=== PATIENT | female | born 1955 | race Caucasian/White ===

== ENCOUNTER 2019-01-05 19:05 | Inpatient (IN) | payer MEDICARE, OTHER ==
[~2019-01-05] VITALS: Ht 157.5 cm; Wt 61.2 kg
[2019-01-05] MEDS ORDERED: ONDANSETRON 4 MG INJ IV STA (22:05)
[2019-01-05] MEDS ORDERED: morphine 2 MG INJ IV STA (22:05)
[2019-01-05] MEDS ORDERED: SOD CHLORIDE 0.9% 1,000 ML IV STA (22:05)
--- NOTE | 2019-01-05 22:11 | ERD ---
ER Documentation Chief Complaint Chief Complaint SOB X'S 1 MONTH HPI 63-year-old female, with history of thyroid disease, presents to the emergency department, complaining of worsening of symptoms for 4 weeks, currently, the patient reports history of shortness of breath, progressive painful enlargement of the goiter, predominantly on the left side, anxiety, loose stools, subjective fever and general malaise. The patient brought labs from 12/26/18 that reports TSH 0.08 and CRP of 82.1. Currently she is taking methimazole and metoprolol without improvement of the symptoms. ROS All systems reviewed and are negative except as per history of present illness. Allergies Allergies: Coded Allergies: sulfamethoxazole (Verified Allergy, Mild, RASH, 01/05/19) trimethoprim (Verified Allergy, Mild, RASH, 01/05/19) PMhx/Soc Medical and Surgical Hx: pt denies Medical Hx, pt denies Surgical Hx History of Surgery: Yes (CHOLECYSTECTOMY) Hx Respiratory Disorders: Yes Hx Miscellaneous Medical Probl: Yes (HYPOTHYROID) Hx Alcohol Use: Yes (socially) Hx Substance Use: No Hx Tobacco Use: No Smoking Status: Never smoker Physical Exam Vitals Vital Signs Date Temp Pulse Resp B/P (MAP) Pulse Ox O2 O2 Flow FiO2 Time Delivery Rate 01/05/19 125 22 134/69 97 Room Air 22:26 (90) 01/05/19 100.4 120 24 130/60 98 19:46 (83) Physical Exam Patient alert, oriented, in distress due to pain erythematous HEENT: Normocephalic, atraumatic. EYES: PERRLA, EOMI, Sclera and conjunctiva appear normal. EARS: Canals clear, tympanic membranes WNL. THROAT: Erythematous oropharynx. NECK: Painful enlargement of the left thyroid lobe. HEART: Tachycardia, no rubs, murmurs, clicks or gallops. LUNGS: Clear to auscultation. ABDOMEN: Soft, non-tender without masses or hepatosplenomegaly. EXTREMITIES: No edema bilaterally. BACK: Full ROM, no deformity, normal back exam NEURO: Cranial nerves grossly intact, mild hyperreflexia. SKIN: No rashes, no petechia. Result Diagram: 01/05/19221401/05/19 221 Results 24 hrs Laboratory Tests Test 01/05/19 22:15 White Blood Count 8.8 10^3/ul Red Blood Count 4.07 10^6/ul Hemoglobin 11.0 g/dl Hematocrit 34.5 % Mean Corpuscular Volume 84.8 fl Mean Corpuscular Hemoglobin 27.0 pg Mean Corpuscular Hemoglobin Concent 31.9 g/dl Red Cell Distribution Width 13.8 % Platelet Count 333 10^3/UL Mean Platelet Volume 10.0 fl Immature Granulocytes % 0.600 % Neutrophils % 81.1 % Lymphocytes % 8.7 % Monocytes % 9.3 % Eosinophils % 0.1 % Basophils % 0.2 % Nucleated Red Blood Cells % 0.0 /100WBC Immature Granulocytes # 0.050 10^3/ul Neutrophils # 7.2 10^3/ul Lymphocytes # 0.8 10^3/ul Monocytes # 0.8 10^3/ul Eosinophils # 0.0 10^3/ul Basophils # 0.0 10^3/ul Nucleated Red Blood Cells # 0.0 10^3/ul Urine Color YELLOW Urine Clarity CLEAR Urine pH 5.0 Urine Specific [place] 1.016 Urine Ketones TRACE mg/dL Urine Nitrite NEGATIVE mg/dL Urine Bilirubin NEGATIVE mg/dL Urine Urobilinogen NEGATIVE mg/dL Urine Leukocyte Esterase TRACE Ngoc/ul Urine Microscopic RBC 0 /HPF Urine Microscopic WBC 2 /HPF Urine Mucus FEW /HPF Urine Hemoglobin NEGATIVE mg/dL Urine Glucose NEGATIVE mg/dL Urine Total Protein NEGATIVE mg/dl Sodium Level 139 mmol/L Potassium Level 4.4 mmol/L Chloride Level 102 mmol/L Carbon Dioxide Level 27 mmol/L Anion Gap 10 Blood Urea Nitrogen 15 mg/dl Creatinine 0.39 mg/dl Est Glomerular Filtrat Rate mL/min > 60 mL/min Glucose Level 135 mg/dl Calcium Level 9.7 mg/dl Total Bilirubin 0.2 mg/dl Direct Bilirubin 0.00 mg/dl Indirect Bilirubin 0.2 mg/dl Aspartate Amino Transf (AST/SGOT) 33 IU/L Alanine Aminotransferase (ALT/SGPT) 19 IU/L Alkaline Phosphatase 99 IU/L Troponin I < 0.012 ng/ml Total Protein 7.6 g/dl Albumin 4.0 g/dl Globulin 3.60 g/dl Albumin/Globulin Ratio 1.11 Thyroid Stimulating Hormone (TSH) < 0.015 MIU/L Free Thyroxine > 6.99 ng/dl Free Triiodothyronine (T3) pg/mL > 22.80 pg/ml Current Medications Medications Dose Sig/Elmer Start Time Status Last (Trade) Ordered Route PRN Stop Time Admin Dose Reason Admin Sodium 1,000 ml @ Q1H STAT 01/05/19 DC 01/05/19 Chloride 1,000 mls/hr IV 22:05 01/05/19 22:24 23:04 Morphine 2 mg ONCE STAT 01/05/19 DC 01/05/19 Sulfate IV 22:05 01/05/19 22:22 (morphine) 22:10 Ondansetron 4 mg ONCE STAT 01/05/19 DC 01/05/19 HCl (Zofran IV 22:05 01/05/19 22:22 Inj) 22:10 Propranolol 60 mg ONCE ONCE 01/05/19 DC 01/05/19 HCl PO 23:00 01/05/19 23:12 (Inderal) 23:01 Methimazole 20 mg ONCE ONCE 01/05/19 DC 01/05/19 (Tapazole) PO 23:00 01/05/19 23:12 23:01 100 mg ONCE ONCE 01/05/19 DC 01/05/19 Hydrocortison IV 23:00 01/05/19 23:12 e 23:01 (Solu-Cortef) Sodium 1,000 ml @ [id number] IV 01/05/19 Chloride 80 mls/hr 23:25 01/06/19 11:54 Patient: MARIE CLARK : 1955 Age: 63 Sex: F MR #: [id number] DOS: 01/05/192204 Ordering MD: LESLIE HERNANDEZ MD Location: [facility] Room/Bed: PROCEDURE: XR Chest. CLINICAL INDICATION: Chest pain TECHNIQUE: Single frontal view of the chest was obtained COMPARISON: CR PORT CHEST 07/25/2009; CR PORT CHEST 07/24/2009; CR PORTABLE CHEST 06/20/2008 FINDINGS: The patient is rotated slightly limiting evaluation. Atherosclerotic calcification of the aorta. Cardiomediastinal silhouette is minimally prominent. No focal opacity within the visualized lungs. No pleural effusion or pneumothorax. Left convex curvature of the thoracic spine. IMPRESSION: 1. Atherosclerotic calcification of the aorta. Minimal prominence of the cardiac silhouette may be exaggerated by technique. 2. No focal infiltrate, pleural effusion or pneumothorax. RPTAT: HVG Procedures/MDM Differential diagnosis include but not limited to: thyroid disease, electrolyte imbalance, anxiety, migraine. Low suspicion for acute coronary event, aortic dissection, CVA. Pertinent Data: 12 Lead ECG: Sinus tachy rhythm, no ST changes. Physical examination and clinical presentation consistent most likely with Goiter with hyperthyroidism/mild thyrotoxicosis, therefore, at this time, I considered that the patient will benefit from inpatient management and evaluation. Dr. Chamorro kindly accepted the admission, Dr. Santos will be consulted. During the ED course the patient remained stable, no new complaints. Results and clinical impression discussed with patient And her daughter who agreed with management. The patient is stable to be admitted to [facility]. Admission: Diagnosis: goiter with hyperthyroidism Accepting physician: Dr. Chamorro Time: 23:00h Android Ui Developer: Educational Program Assistant Dr. Santos Level of care: [facility] Ins: Medi-medi Instructions explained and given directly by me to the patient with acknowledgment and demonstrated understanding. Disclaimer: Inadvertent spelling and grammatical errors are likely due to EHR/dictation software use and do not reflect on the overall quality of patient care. Also, please note that the electronic time recorded on this note does not necessarily reflect the actual time of the patient encounter. Departure Diagnosis: Primary Impression: Goiter with hyperthyroidism Additional Impression: Tachycardia Condition: Stable LESLIE HERNANDEZ MD Jan 05, 2019 22:11
[2019-01-05] MEDS ORDERED: METHIMAZOLE 5 MG TAB PO ONE (23:00)
[2019-01-05] MEDS ORDERED: PROPRANOLOL 20 MG TAB PO ONE (23:00)
[2019-01-05] MEDS ORDERED: HYDROCORTISONE 100 MG INJ IV ONE (23:00)
[2019-01-05] MEDS ORDERED: SOD CHLORIDE 0.9% 1,000 ML IV SCH (23:25)
[2019-01-05] MEDS ORDERED: KETOROLAC 30 MG INJ IV PRN (23:30)
[2019-01-05] MEDS ORDERED: ONDANSETRON 4 MG INJ IV PRN (23:30)
[2019-01-05] MEDS ORDERED: ACETAMINOPHEN 325 MG TAB PO PRN (23:30)
[2019-01-06] VITALS (7 sets, daily range): BP systolic 103–140; BP diastolic 55–72; PULSE 64–105; RESP 16–20; Ht 157.5 cm; Wt 61.2 kg
[2019-01-06] MEDS ORDERED: ACETAMINOPHEN 500 MG TAB PO PRN (01:30)
[2019-01-06] MEDS: DEXTROSE 5%-0.9% NACL 1,000 ML IV SCH (01:34)
[2019-01-06] MEDS: PROPRANOLOL 40 MG TAB PO SCH ×3 (05:54→21:08)
[2019-01-06] MEDS: METHIMAZOLE 5 MG TAB PO SCH ×2 (09:00→20:56)
[2019-01-06] MEDS ORDERED: predniSONE 20 MG TAB PO SCH (09:00)
--- NOTE | 2019-01-06 09:32 | HP ---
Date/Time of Note Date/Time of Note DATE: 01/06/19 TIME: 09:27 Assessment/Plan VTE Prophylaxis SCD applied (from Nsg): Yes SCD contraindicated: low risk/ambulating Pharmacological prophylaxis: LMWH Pharm contraindication: low risk/ambulating Lines/Catheters IV Catheter Type (from Nrsg): Peripheral IV Central line still needed: No Urinary Cath still in place: No Reason Cath still needed: urinary retention Assessment/Plan Assessment/Plan 1. Thyrotoxicosis 2. Tachycardia 3. Neck pain 4. Dehydration 5. Weight loss 6. Osteoporosis 7. History of cholecystectomy 8. History of appendectomy 9. History of tonsillectomy 10. Anemia 11. Constipation, no GI workup was done. 12. Anxiety 13. Chest pain 14. Respiratory distress. 15. Incomplete data. Result Diagram: 01/05/19 2215 01/05/19 2215 Results 24hrs Laboratory Tests Test 01/05/19 22:15 01/06/19 05:59 White Blood Count 8.8 Red Blood Count 4.07 L Hemoglobin 11.0 L Hematocrit 34.5 L Mean Corpuscular Volume 84.8 Mean Corpuscular Hemoglobin 27.0 L Mean Corpuscular Hemoglobin Concent 31.9 L Red Cell Distribution Width 13.8 Platelet Count 333 Mean Platelet Volume 10.0 Immature Granulocytes % 0.600 H Neutrophils % 81.1 H Lymphocytes % 8.7 L Monocytes % 9.3 Eosinophils % 0.1 Basophils % 0.2 Nucleated Red Blood Cells % 0.0 Immature Granulocytes # 0.050 H Neutrophils # 7.2 Lymphocytes # 0.8 Monocytes # 0.8 Eosinophils # 0.0 Basophils # 0.0 Nucleated Red Blood Cells # 0.0 Urine Color YELLOW Urine Clarity CLEAR Urine pH 5.0 Urine Specific [place] 1.016 Urine Ketones TRACE A Urine Nitrite NEGATIVE Urine Bilirubin NEGATIVE Urine Urobilinogen NEGATIVE Urine Leukocyte Esterase TRACE A Urine Microscopic RBC 0 Urine Microscopic WBC 2 Urine Mucus FEW A Urine Hemoglobin NEGATIVE Urine Glucose NEGATIVE Urine Total Protein NEGATIVE Sodium Level 139 Potassium Level 4.4 Chloride Level 102 Carbon Dioxide Level 27 Anion Gap 10 Blood Urea Nitrogen 15 Creatinine 0.39 L Est Glomerular Filtrat Rate mL/min > 60 Glucose Level 135 Calcium Level 9.7 Total Bilirubin 0.2 Direct Bilirubin 0.00 Indirect Bilirubin 0.2 Aspartate Amino Transf (AST/SGOT) 33 Alanine Aminotransferase (ALT/SGPT) 19 Alkaline Phosphatase 99 Troponin I < 0.012 Total Protein 7.6 Albumin 4.0 Globulin 3.60 H Albumin/Globulin Ratio 1.11 Thyroid Stimulating Hormone (TSH) < 0.015 L Free Thyroxine > 6.99 H Free Triiodothyronine (T3) pg/mL > 22.80 H Magnesium Level 2.2 Iron Level 12 L Total Iron Binding Capacity 274 Percent Iron Saturation 4 L HPI/ROS Admit Date/Time Admit Date/Time Jan 05, 2019 at 23:27 Hx of Present Illness Neck pain with swelling worse last 5-7 days. Came to the office about 10 days ago complaining of weight loss and palpitations patient was found to have a. Hyperthyroid condition with the TSH being 0.01 that was also started. 10 mg twice daily along with the Inderal 40 3 times daily. Patient condition mildly improved she came to the office 4 days ago complaining of painful and swollen neck which was thyroiditis consistent with thyroiditis. Motrin was given 600 3 times daily yesterday received a call from a that. Her tachycardia continues she does not feel good she is having swallowing problems and recomm ended to come to the hospital and subsequently was admitted. In the emergency room prednisone was started heart rate now is better controlled. She continues to have a pain in the neck area. ROS Constitutional: diaphoresis, fatigue, nausea, poor po Eyes: redness, visual change; No no complaints, No pain, No discharge, No other ENT: pain, congestion, discharge, sore throat; No no complaints, No bleeding, No dysphagia, No other Respiratory: cough, shortness of breath; No no complaints, No pain, No pleuritic pain, No sputum, No wheezing, No other Cardiovascular: chest pain, lightheadedness, orthopenea, palpitations, paroxysmal nocturnal dyspnea; No no complaints, No edema, No other Gastrointestinal: constipation, decreased appetite, flatus, nausea, passing stool; No no complaints, No pain, No blood, No diarrhea, No vomiting, No other Genitourinary: dysuria, flank pain Musculoskeletal: back pain, bone/joint pain, neck pain; No no complaints, No restricted range of motion, No swelling, No other Skin: pruritis, rash; No no complaints, No bruising, No erythema, No laceration, No skin lesions, No other Neurologic: confusion, dizziness, headache, syncope; No no complaints, No focal-weakness, No seizure, No other Endocrine: polydypsia, dry skin, weight change; No no complaints, No polyuria, No temp intolerance, No other Lymphatic: No no complaints, No adenopathy, No tender nodes, No lymphadema, No other Psychological: anxiety, confusion; No no complaints, No nl mood/affect, No depression, No suicidal, No other Immunologic: No no complaints, No immunodeficiency, No pruritis, No rhinitis, No urticaria, No other PMH/Family/Social Past Medical History Medical History: angina, congestive heart failure, coronary artery disease, gallstones, GERD, high cholesterol, hypertension, urinary tract infection Medications Current Medications Ketorolac Tromethamine (Toradol) 30 mg ER BRIDGE PRN IV .PAIN; Start 01/05/19 at 23:30; Stop 01/06/19 at 23:29 Ondansetron HCl (Zofran Inj) 4 mg BRIDGE ORDER PRN IV NAUSEA/VOMITING; Start 01/05/19 at 23:30; Stop 01/06/19 at 23:29 Acetaminophen (Tylenol Tab) 650 mg ER BRIDGE PRN PO .MILD PAIN 1-3 OR TEMP; Start 01/05/19 at 23:30; Stop 01/06/19 at 23:29 Dextrose/Sodium Chloride 1,000 ml @ 40 mls/hr Q24H IV Last administered on 01/06/19at 01:34; Admin Dose 40 MLS/HR; Start 01/06/19 at 01:30 Acetaminophen (Tylenol Tab) 500 mg Q8 PRN PO MILD PAIN(1-3)OR ELEVATED TEMP; Start 01/06/19 at 01:30 Propranolol HCl (Inderal) 40 mg Q8 PO Last administered on 01/06/19at 05:54; Admin Dose 40 MG; Start 01/06/19 at 06:00 Methimazole (Tapazole) 20 mg BID PO Last administered on 01/06/19at 09:00; Admin Dose 20 MG; Start 01/06/19 at 09:00 Prednisone (Prednisone) 80 mg DAILY PO Last administered on 01/06/19at 09:00; Admin Dose 80 MG; Start 01/06/19 at 09:00; Stop 01/07/19 at 07:00 Prednisone (Prednisone) 60 mg DAILY PO ; Start 01/07/19 at 09:00 Coded Allergies: sulfamethoxazole (Verified Allergy, Mild, RASH, 01/05/19) trimethoprim (Verified Allergy, Mild, RASH, 01/05/19) Past Surgical History Past Surgical Hx: appendectomy, cholecystectomy, other (Tonsillectomy.) Family History Significant Family History: heart disease, COPD, diabetes Social History Alcohol Use: none Smoking Status: Never smoker Drug Use: none Exam/Review of Systems Vital Signs Vitals Vital Signs Date Temp Pulse Resp B/P (MAP) Pulse Ox O2 O2 Flow FiO2 Time Delivery Rate 01/06/19 98.8 64 20 103/72 98 08:00 (82) 01/05/19 Room Air 23:57 Intake and Output 01/05/19 01/05/19 01/06/19 1414:59 22:59 06:59 IntakeIntake Total 140 ml BalanceBalance 140 ml Exam Constitutional: alert, oriented, well developed, distress, frail Psych: anxiety, depression; No no complaints, No nl mood/affect, No confusion, No suicidal, No other Head: normocephalic, atraumatic, lacerations; No hematomas, No other Eyes: EOMI, nl lids, PERRL; No nl conjunctiva, No nl sclera, No icteric, No fundi, disc, No other ENMT: other (Status post tonsillectomy status.); No nl external ears & nose, No nl lips & teeth, No nl nasal mucosa & septum, No mucosa pink and moist, No intubated, No tympanic membranes Neck: non-tender, jvd, bruits, thyromegaly, nuchal rigidity, other (Warm swollen painful thyroid.) Respiratory: normal air movement, congested cough, diminished breath sounds, labored breathing, tactile fremitus; No clear to auscultation, No crackles/rales, No intercostal retraction, No respirations, No wheezing, No other Cardiovascular: nl pulses, bruits, edema (Periorbital area more prominent.), irregular rhythm, jugular venous distention (JVD), systolic murmur; No regular rate and rhythm, No diastolic murmur, No gallop, No murmurs/extra sounds, No rub, No S3, No S4, No other Gastrointestinal: bowel sounds, distended, rebound or guarding, surgical scars, other (Status post cholecystectomy scars.); No soft, No nl liver, spleen, No non-tender, No ascites, No firm, No h epatomegaly, No mass, No splenomegaly, No tender Genitourinary - Female: nl adnexae, nl external genitalia; No CMT, No CVA tenderness, No uterus, No other Musculoskeletal: joint tenderness, muscle tone, muscle weakness; No nl extremities to inspection, No nl gait and stance, No range of motion, No spine non-tender, No swelling, No other Extremities: normal pulses; No calf tenderness, No cyanosis, No clubbing, No edema, No pitting pedal edema, No palpable cord, No tenderness, No other Neurological: [employer] II-XII intact, numbness; No nl mental status, No nl speech, No nl strength, No confused, No DTR's symmetric, No focal weakness, No lethargic, No reflexes, No unresponsive, No other Skin: nl turgor; No rash or lesions, No diaphoresis, No ecchymosis, No laceration, No punctu re, No other Lymph: No nl lymph nodes, No enlarged, No nontender, No other GALLO HUMMEL MD Jan 06, 2019 09:32
--- NOTE | 2019-01-06 13:31 | CONS ---
Assessment/Plan Assessment/Plan Problems: (1) Goiter with hyperthyroidism Status: Acute Comment: He has not 100% clear whether this is a hyperthyroid multinodular goiter and she has another ENT issue going on for an acute thyroiditis with thyrotoxicosis. She is improving and so I am going to do her thyroid ultrasound tomorrow so she will be more comfortable. Please note if we did not stipulate acute thyroiditis (a sedimentation rate would help to differentiate this) and she actually presented with multiple signs and symptoms consistent with thyroid storm. She is already improving and has actually received the appropriate treatment. (2) Iron deficiency anemia Status: Chronic Comment: Try to replace this but I am also going to do oral iron which will help to remove excess thyroid hormone from the bloodstream Qualifiers: Qualified Codes: D50.9 - Iron deficiency anemia, unspecified (3) Dyslipidemia Status: Chronic Comment: As per primary care physician Consultation Date/Type/Reason Admit Date/Time Jan 05, 2019 at 23:27 Date of Consultation: Jan 06, 2019 Type of Consult Endocrinology Reason for Consultation Thyrotoxicosis with neck tenderness, possible acute thyroiditis Requesting Provider: GALLO HUMMEL MD Date/Time of Note DATE: 01/06/19 TIME: 13:26 Hx of Present Illness Pleasant 63-year-old woman with no prior history of thyroid disease to the best of her knowledge. Roughly a week ago she presented with marked palpitations weight loss and tremor. At that time she was found to be hyperthyroid and was placed on Inderal and propanolol. She subsequently has developed pain and tenderness in the area of the neck and also up into the left hand submandibular area and left ear area. She was unaware of any specific fevers denied any shaking chills or drenching sweats. She has otherwise a negative endocrine review of systems outside of thyrotoxic symptoms. Constitutional: febrile Eyes: no complaints ENT: sore throat, other (Tenderness especially left-sided) Respiratory: no complaints Cardiovascular: palpitations Gastrointestinal: no complaints (Eyes any diarrhea or excess bowel movements) Genitourinary: no complaints Musculoskeletal: no complaints Skin: no complaints Endocrine: temp intolerance, other (Full symptoms consistent with thyrotoxicosis acutely) Lymphatic: no complaints Past Medical History Medical History: high cholesterol, other (Acute thyrotoxicosis) Medications Current Medications Ketorolac Tromethamine (Toradol) 30 mg ER BRIDGE PRN IV .PAIN; Start 01/05/19 at 23:30; Stop 01/06/19 at 23:29 Ondansetron HCl (Zofran Inj) 4 mg BRIDGE ORDER PRN IV NAUSEA/VOMITING; Start 01/05/19 at 23:30; Stop 01/06/19 at 23:29 Acetaminophen (Tylenol Tab) 650 mg ER BRIDGE PRN PO .MILD PAIN 1-3 OR TEMP; Start 01/05/19 at 23:30; Stop 01/06/19 at 23:29 Dextrose/Sodium Chloride 1,000 ml @ 40 mls/hr Q24H IV Last administered on 01/06/19at 01:34; Admin Dose 40 MLS/HR; Start 01/06/19 at 01:30 Acetaminophen (Tylenol Tab) 500 mg Q8 PRN PO MILD PAIN(1-3)OR ELEVATED TEMP; Start 01/06/19 at 01:30 Propranolol HCl (Inderal) 40 mg Q8 PO Last administered on 01/06/19at 13:14; Admin Dose 40 MG; Start 01/06/19 at 06:00 Methimazole (Tapazole) 20 mg BID PO Last administered on 01/06/19at 09:00; Admin Dose 20 MG; Start 01/06/19 at 09:00 Prednisone (Prednisone) 80 mg DAILY PO Last administered on 01/06/19at 09:00; Admin Dose 80 MG; Start 01/06/19 at 09:00; Stop 01/07/19 at 07:00 Prednisone (Prednisone) 60 mg DAILY PO ; Start 01/07/19 at 09:00 Ferric Sodium Gluconate Complex 125 mg/Sodium Chloride 100 ml @ 100 mls/hr DAILY@1300 IVPB ; Start 01/07/19 at 13:00; Stop 01/09/19 at 13:59; Status UNV Ferric Sodium Gluconate Complex 125 mg/Sodium Chloride 100 ml @ 100 mls/hr ONCE ONCE IVPB ; Start 01/06/19 at 13:30; Stop 01/06/19 at 14:29; Status UNV Docusate Sodium/ Ferrous Fumarate (Darlene-Sequels) 1 tab BID PO ; Start 01/06/19 at 13:30; Status UNV Allergies: Coded Allergies: sulfamethoxazole (Verified Allergy, Mild, RASH, 01/05/19) trimethoprim (Verified Allergy, Mild, RASH, 01/05/19) Past Surgical History Past Surgical Hx: appendectomy, cholecystectomy, other (Has post tonsillectomy) Family History Significant Family History: no pertinent family hx Social History Alcohol Use: none Smoking Status: Never smoker Drug Use: none Exam/Review of Systems Exam Vitals Vital Signs Date Temp Pulse Resp B/P (MAP) Pulse Ox O2 O2 Flow FiO2 Time Delivery Rate 01/06/19 105 140/65 13:16 (90) 01/06/19 98.8 20 98 08:00 01/05/19 Room Air 23:57 Intake and Output 01/05/19 01/05/19 01/06/19 1515:00 23:00 07:00 IntakeIntake Total 140 ml BalanceBalance 140 ml Exam She reports she is feeling better since admission and treatment with steroids Constitutional: alert, oriented Psych: no complaints, nl mood/affect Head: normocephalic, atraumatic Eyes: nl conjunctiva, EOMI, nl lids, nl sclera ENMT: other (Thyroid gland is diffusely enlarged with a multinodular texture and tender in the left lower pole) Neck: supple, non-tender Respiratory: clear to auscultation Cardiovascular: regular rate and rhythm, nl pulses Gastrointestinal: soft, nl liver, spleen, non-tender Extremities: normal pulses Results Result Diagram: 01/05/19221401/05/192214 Results 24hrs Laboratory Tests Test 01/05/19 22:15 01/06/19 05:59 White Blood Count 8.8 Red Blood Count 4.07 L Hemoglobin 11.0 L Hematocrit 34.5 L Mean Corpuscular Volume 84.8 Mean Corpuscular Hemoglobin 27.0 L Mean Corpuscular Hemoglobin Concent 31.9 L Red Cell Distribution Width 13.8 Platelet Count 333 Mean Platelet Volume 10.0 Immature Granulocytes % 0.600 H Neutrophils % 81.1 H Lymphocytes % 8.7 L Monocytes % 9.3 Eosinophils % 0.1 Basophils % 0.2 Nucleated Red Blood Cells % 0.0 Immature Granulocytes # 0.050 H Neutrophils # 7.2 Lymphocytes # 0.8 Monocytes # 0.8 Eosinophils # 0.0 Basophils # 0.0 Nucleated Red Blood Cells # 0.0 Urine Color YELLOW Urine Clarity CLEAR Urine pH 5.0 Urine Specific [place] 1.016 Urine Ketones TRACE A Urine Nitrite NEGATIVE Urine Bilirubin NEGATIVE Urine Urobilinogen NEGATIVE Urine Leukocyte Esterase TRACE A Urine Microscopic RBC 0 Urine Microscopic WBC 2 Urine Mucus FEW A Urine Hemoglobin NEGATIVE Urine Glucose NEGATIVE Urine Total Protein NEGATIVE Sodium Level 139 Potassium Level 4.4 Chloride Level 102 Carbon Dioxide Level 27 Anion Gap 10 Blood Urea Nitrogen 15 Creatinine 0.39 L Est Glomerular Filtrat Rate mL/min > 60 Glucose Level 135 Calcium Level 9.7 Total Bilirubin 0.2 Direct Bilirubin 0.00 Indirect Bilirubin 0.2 Aspartate Amino Transf (AST/SGOT) 33 Alanine Aminotransferase (ALT/SGPT) 19 Alkaline Phosphatase 99 Troponin I < 0.012 Total Protein 7.6 Albumin 4.0 Globulin 3.60 H Albumin/Globulin Ratio 1.11 Thyroid Stimulating Hormone (TSH) < 0.015 L Free Thyroxine > 6.99 H Free Triiodothyronine (T3) pg/mL > 22.80 H Magnesium Level 2.2 Iron Level 12 L Total Iron Binding Capacity 274 Percent Iron Saturation 4 L Medications Medication Current Medications Ketorolac Tromethamine (Toradol) 30 mg ER BRIDGE PRN IV .PAIN; Start 01/05/19 at 23:30; Stop 01/06/19 at 23:29 Ondansetron HCl (Zofran Inj) 4 mg BRIDGE ORDER PRN IV NAUSEA/VOMITING; Start 01/05/19 at 23:30; Stop 01/06/19 at 23:29 Acetaminophen (Tylenol Tab) 650 mg ER BRIDGE PRN PO .MILD PAIN 1-3 OR TEMP; Start 01/05/19 at 23:30; Stop 01/06/19 at 23:29 Dextrose/Sodium Chloride 1,000 ml @ 40 mls/hr Q24H IV Last administered on 01/06/19at 01:34; Admin Dose 40 MLS/HR; Start 01/06/19 at 01:30 Acetaminophen (Tylenol Tab) 500 mg Q8 PRN PO MILD PAIN(1-3)OR ELEVATED TEMP; Start 01/06/19 at 01:30 Propranolol HCl (Inderal) 40 mg Q8 PO Last administered on 01/06/19at 13:14; Admin Dose 40 MG; Start 01/06/19 at 06:00 Methimazole (Tapazole) 20 mg BID PO Last administered on 01/06/19at 09:00; Admin Dose 20 MG; Start 01/06/19 at 09:00 Prednisone (Prednisone) 80 mg DAILY PO Last administered on 01/06/19at 09:00; Admin Dose 80 MG; Start 01/06/19 at 09:00; Stop 01/07/19 at 07:00 Prednisone (Prednisone) 60 mg DAILY PO ; Start 01/07/19 at 09:00 Ferric Sodium Gluconate Complex 125 mg/Sodium Chloride 100 ml @ 100 mls/hr DAILY@1300 IVPB ; Start 01/07/19 at 13:00; Stop 01/09/19 at 13:59; Status UNV Ferric Sodium Gluconate Complex 125 mg/Sodium Chloride 100 ml @ 100 mls/hr ONCE ONCE IVPB ; Start 01/06/19 at 13:30; Stop 01/06/19 at 14:29; Status UNV Docusate Sodium/ Ferrous Fumarate (Darlene-Sequels) 1 tab BID PO ; Start 01/06/19 at 13:30; Status UNV VENUS ELIAS MD Jan 06, 2019 13:31
[2019-01-06] MEDS ORDERED: SOD FERRIC GLUC COMPLX 125 MG in SOD CHLORIDE 0.9% 100 ML IVPB ONE (15:00)
[2019-01-06] MEDS: FERROUS FUMARATE (SR) TAB PO SCH ×2 (15:08→20:56)
[2019-01-07] VITALS (8 sets, daily range): BP systolic 94–123; BP diastolic 55–71; PULSE 103–146; RESP 18
[2019-01-07] MEDS: DEXTROSE 5%-0.9% NACL 1,000 ML IV SCH ×3 (01:30→21:56)
[2019-01-07] MEDS: HYDROCODONE/APAP (5/325) TAB PO PRN ×3 (01:41→19:45)
[2019-01-07] MEDS: PROPRANOLOL 40 MG TAB PO SCH ×3 (05:47→22:00)
[2019-01-07] MEDS: predniSONE 20 MG TAB PO SCH (09:21)
[2019-01-07] MEDS: FERROUS FUMARATE (SR) TAB PO SCH ×2 (09:21→21:35)
[2019-01-07] MEDS: METHIMAZOLE 5 MG TAB PO SCH ×2 (09:21→21:35)
[2019-01-07] MEDS ORDERED: POTASSIUM CHLORIDE (SR) 20 MEQ TAB PO STA (11:24)
[2019-01-07] MEDS: SOD FERRIC GLUC COMPLX 125 MG in SOD CHLORIDE 0.9% 100 ML IVPB SCH (13:33)
--- NOTE | 2019-01-07 18:00 | CONS ---
Assessment/Plan Assessment/Plan Problems: (1) Nodular goiter, toxic or with hyperthyroidism Status: Chronic Comment: Suspect she is been hyperthyroid for some time but I do not have access to the older data. An ideal setting we go ahead and do nuclear medicine thyroid uptake and scan although given how hyperthyroid is I think we need to actually bring that under control first. Doing FNA biopsies in a patient with profound hyperthyroidism we do not know whether the nodules are functional or nonfunctional is not actually standard. Since she is not having direct mass symptoms referable to this we do not have an indication to send her directly to surgery although that still could be a consideration. For now we will try and calm down the thyrotoxicosis and then reevaluate her. This would be with nu clear medicine thyroid scan and uptake and then any dominant cold nodules would need to be biopsied. If all the nodules are hyperfunctioning makes it much simpler and should be treated with radioactive iodine ablation therapy. Another possibility exists that this is an acute thyroiditis and she does have an elevated sedimentation rate without elevated white count. However she has not responded to prednisone and that should have had an effect on this already. (2) Iron deficiency anemia Status: Chronic Comment: Been replaced intravenously Qualifiers: Iron deficiency anemia type: unspecified iron deficiency Qualified Codes: D50.9 - Iron deficiency anemia, unspecified (3) Dyslipidemia Status: Chronic Comment: Noted. Consultation Date/Type/Reason Admit Date/Time Jan 05, 2019 at 23:27 Initial Consult Date 01/06/19 Type of Consult Endocrinology Reason for Consultation Severe thyrotoxicosis; multinodular thyroid gland; tender left side of the neck Requesting Provider: GALLO HUMMEL MD Date/Time of Note DATE: 01/07/19 TIME: 17:55 24 HR Interval Summary Free Text/Dictation Patient reports she still has pain and some symptoms of hyperthyroidism Constitutional: no complaints (Denies fevers chills or sweats) Detailed Summary ENT: sore throat (Left-sided neck pain) Respiratory: no complaints Cardiovascular: no complaints Gastrointestinal: no complaints Genitourinary: no complaints Neurologic: other (Positive tremor) Exam/Review of Systems Exam Vitals Vital Signs Date Temp Pulse Resp B/P (MAP) Pulse Ox O2 O2 Flow FiO2 Time Delivery Rate 01/07/19 97.8 129 110/71 15:14 (84) 01/07/19 18 96 13:54 01/05/19 Room Air 23:57 Intake and Output 01/06/19 01/06/19 01/07/19 1515:00 23:00 07:00 IntakeIntake Total 450 ml 890 ml 420 ml BalanceBalance 450 ml 890 ml 420 ml Constitutional: alert, oriented Neck: thyromegaly (Nodular thyroid gland with bilateral large nodules and multiple small nodules tender on the left-hand side) Respiratory: clear to auscultation, normal air movement Cardiovascular: regular rate and rhythm, nl pulses Results Result Diagram: 01/05/19 2215 01/07/19 0509 Results 24hrs Laboratory Tests Test 01/07/19 05:09 Erythrocyte Sedimentation Rate 82 H Sodium Level 142 Potassium Level 3.3 L Chloride Level 110 Carbon Dioxide Level 27 Anion Gap 5 Blood Urea Nitrogen 15 Creatinine 0.39 L Est Glomerular Filtrat Rate mL/min > 60 Glucose Level 113 Calcium Level 9.1 Total Bilirubin 0.2 Direct Bilirubin 0.00 Indirect Bilirubin 0.2 Aspartate Amino Transf (AST/SGOT) 35 Alanine Aminotransferase (ALT/SGPT) 20 Alkaline Phosphatase 97 Total Protein 5.9 #L Albumin 2.9 #L Globulin 3.00 Albumin/Globulin Ratio 0.96 Medications Medication Current Medications Dextrose/Sodium Chloride 1,000 ml @ 40 mls/hr Q24H IV Last administered on 01/07/19 05:45; Admin Dose 40 MLS/HR; Start 01/06/19 at 01:30 Acetaminophen (Tylenol Tab) 500 mg Q8 PRN PO MILD PAIN(1-3)OR ELEVATED TEMP; Start 01/06/19 at 01:30 Propranolol HCl (Inderal) 40 mg Q8 PO Last administered on 01/07/19 05:47; Admin Dose 40 MG; Start 01/06/19 at 06:00 Methimazole (Tapazole) 20 mg BID PO Last administered on 01/07/19 09:21; Admin Dose 20 MG; Start 01/06/19 at 09:00 Prednisone (Prednisone) 60 mg DAILY PO Last administered on 01/07/19 09:21; Admin Dose 60 MG; Start 01/07/19 at 09:00 Ferric Sodium Gluconate Complex 125 mg/Sodium Chloride 100 ml @ 100 mls/hr DAILY@1300 IVPB Last administered on 01/07/19 13:33; Admin Dose 100 MLS/HR; Start 01/07/19 at 13:00; Stop 01/09/19 at 13:59 Docusate Sodium/ Ferrous Fumarate (Darlene-Sequels) 1 tab BID PO Last administered on 01/07/19at 09:21; Admin Dose 1 TAB; Start 01/06/19 at 13:30 Acetaminophen/ Hydrocodone Bitart ([place] (5/325)) 1 tab Q8H PRN PO MODERATE PAIN LEVEL 4-6 Last administered on 01/07/19at 09:30; Admin Dose 1 TAB; Start 01/07/19 at 02:00 VENUS ELIAS MD Jan 07, 2019 18:00
[2019-01-07] MEDS ORDERED: SOD CHLORIDE 0.9% 250 ML IV ONE (20:00)
[2019-01-07] MEDS ORDERED: SOD CHLORIDE 0.9% 500 ML IV ONE (20:00)
[2019-01-07] MEDS: CELECOXIB 100 MG CAP PO SCH (21:35)
[2019-01-08 02:00] VITALS: BP 111/56; PULSE 136
[2019-01-08] MEDS: PANTOPRAZOLE (EC) 40 MG TAB PO SCH (05:58)
[2019-01-08] MEDS: PROPRANOLOL 40 MG TAB PO SCH ×3 (06:11→18:48)
[2019-01-08] MEDS ORDERED: POTASSIUM CHLORIDE (SR) 20 MEQ TAB PO STA ×2 (06:18→14:41)
[2019-01-08] MEDS: ONDANSETRON 4 MG INJ IV PRN (06:33)
[2019-01-08 08:25] VITALS: BP 115/58; PULSE 125; RESP 18
[2019-01-08] MEDS: predniSONE 20 MG TAB PO SCH (08:41)
[2019-01-08] MEDS: METHIMAZOLE 5 MG TAB PO SCH ×2 (08:41→20:47)
[2019-01-08] MEDS: HYDROCODONE/APAP (5/325) TAB PO PRN (08:41)
[2019-01-08] MEDS: CELECOXIB 100 MG CAP PO SCH ×2 (08:41→20:47)
[2019-01-08] MEDS: FERROUS FUMARATE (SR) TAB PO SCH ×2 (08:41→20:47)
[2019-01-08] MEDS ORDERED: PROPRANOLOL 40 MG TAB PO SCH (12:00)
[2019-01-08] MEDS: SOD FERRIC GLUC COMPLX 125 MG in SOD CHLORIDE 0.9% 100 ML IVPB SCH (13:33)
[2019-01-08 13:36] VITALS: PULSE 91
[2019-01-08] MEDS: DEXTROSE 5%-0.9% NACL 1,000 ML IV SCH (13:38)
--- NOTE | 2019-01-08 14:46 | CONS ---
Assessment/Plan Assessment/Plan Problems: (1) Nodular goiter, toxic or with hyperthyroidism Status: Chronic Comment: After the usage of nonsteroidal anti-inflammatory drugs the patient is enormously improved. This may very well be an acute thyroiditis with thyrotoxicosis. Regardless she is better I will check her labs tomorrow but assuming everything goes well she should be able to be discharged tomorrow (2) Iron deficiency anemia Status: Chronic Comment: This will require outpatient evaluation. Qualifiers: Iron deficiency anemia type: unspecified iron deficiency Qualified Codes: D50.9 - Iron deficiency anemia, unspecified (3) Dyslipidemia Status: Chronic Comment: Continue statin therapy Consultation Date/Type/Reason Admit Date/Time Jan 05, 2019 at 23:27 Initial Consult Date 01/06/19 Type of Consult Endocrinology Reason for Consultation Severe thyrotoxicosis with elevated sedimentation rate and acutely tender thyroid gland; multinodular goiter; iron deficiency anemia Requesting Provider: GALLO HUMMEL MD Date/Time of Note DATE: 01/08/19 TIME: 14:43 24 HR Interval Summary Free Text/Dictation Patient reports that today that she is significantly better than yesterday. She reports the nodule is smaller. Please note that our colleagues in the nursing division report the same and confirm it Constitutional: no complaints (No fevers no chills no sweats) Detailed Summary Cardiovascular: no complaints (Palpitations resolved) Exam/Review of Systems Exam Vitals Vital Signs Date Temp Pulse Resp B/P (MAP) Pulse Ox O2 O2 Flow FiO2 Time Delivery Rate 01/08/19 91 13:36 01/08/19 98.5 18 115/58 96 Room Air 08:25 (77) Intake and Output 01/07/19 01/07/19 01/08/19 1515:00 23:00 07:00 IntakeIntake Total 860 ml 660 ml 480 ml BalanceBalance 860 ml 660 ml 480 ml Constitutional: alert, oriented ENMT: other (Thyroid gland is significantly less tender and less swollen, still left-sided enlargement) Neck: supple, non-tender Respiratory: clear to auscultation, normal air movement Results Result Diagram: 01/08/19 0511 01/08/19 0511 Results 24hrs Laboratory Tests Test 01/08/19 05:11 White Blood Count 9.2 Red Blood Count 3.53 L Hemoglobin 9.5 L Hematocrit 30.0 L Mean Corpuscular Volume 85.0 Mean Corpuscular Hemoglobin 26.9 L Mean Corpuscular Hemoglobin Concent 31.7 L Red Cell Distribution Width 13.9 Platelet Count 326 Mean Platelet Volume 10.4 Immature Granulocytes % 0.700 H Neutrophils % 73.4 Lymphocytes % 14.8 L Monocytes % 10.7 Eosinophils % 0.2 Basophils % 0.2 Nucleated Red Blood Cells % 0.0 Immature Granulocytes # 0.060 H Neutrophils # 6.8 Lymphocytes # 1.4 Monocytes # 1.0 H Eosinophils # 0.0 Basophils # 0.0 Nucleated Red Blood Cells # 0.0 Sodium Level 143 Potassium Level 3.5 Chloride Level 111 H Carbon Dioxide Level 28 Anion Gap 4 L Blood Urea Nitrogen 15 Creatinine 0.39 L Est Glomerular Filtrat Rate mL/min > 60 Glucose Level 126 Calcium Level 9.1 Medications Medication Current Medications Dextrose/Sodium Chloride 1,000 ml @ 60 mls/hr [id number] IV Last administered on 01/08/19 13:38; Admin Dose 60 MLS/HR; Start 01/06/19 at 01:30 Acetaminophen (Tylenol Tab) 500 mg Q8 PRN PO MILD PAIN(1-3)OR ELEVATED TEMP; Start 01/06/19 at 01:30 Prednisone (Prednisone) 60 mg DAILY PO Last administered on 01/08/19 08:41; Admin Dose 60 MG; Start 01/07/19 at 09:00 Ferric Sodium Gluconate Complex 125 mg/Sodium Chloride 100 ml @ 100 mls/hr DAILY@1300 IVPB Last administered on 01/08/19 13:33; Admin Dose 100 MLS/HR; Start 01/07/19 at 13:00; Stop 01/09/19 at 13:59 Docusate Sodium/ Ferrous Fumarate (Darlene-Sequels) 1 tab BID PO Last administered on 01/08/19 08:41; Admin Dose 1 TAB; Start 01/06/19 at 13:30 Acetaminophen/ Hydrocodone Bitart ([place] (5/325)) 1 tab Q8H PRN PO MODERATE PAIN LEVEL 4-6 Last administered on 01/08/19 08:41; Admin Dose 1 TAB; Start 01/07/19 at 02:00 Methimazole (Tapazole) 30 mg BID PO Last administered on 01/08/19 08:41; Admin Dose 30 MG; Start 01/07/19 at 21:00 Pantoprazole (Protonix Tab) 40 mg DAILY@06 PO Last administered on 01/08/19at 05:58; Admin Dose 40 MG; Start 01/08/19 at 06:00 Celecoxib (Celebrex) 100 mg BID PO Last administered on 01/08/19 08:41; Admin Dose 100 MG; Start 01/07/19 at 21:00 Propranolol HCl (Inderal) 40 mg Q6 PO Last administered on 01/08/19at 11:46; Admin Dose 40 MG; Start 01/08/19 at 12:00 Ondansetron HCl (Zofran Inj) 4 mg Q6H PRN IV NAUSEA AND/OR VOMITING Last administered on 01/08/19 06:33; Admin Dose 4 MG; Start 01/08/19 at 06:30 VENUS ELIAS MD Jan 08, 2019 14:46
[2019-01-08 14:58] VITALS: BP 100/59; PULSE 98; RESP 18
[2019-01-08 18:48] VITALS: BP 114/56; PULSE 101
[2019-01-08 20:00] VITALS: BP 117/59; PULSE 101; RESP 18
--- NOTE | 2019-01-08 20:29 | PN ---
Date/Time of Note Date/Time of Note DATE: 01/08/19 TIME: 20:23 Assessment/Plan VTE Prophylaxis Risk score (from Ns)>0 risk: 2 SCD applied (from Ns): No SCD contraindicated: low risk/ambulating Pharmacological prophylaxis: LMWH Lines/Catheters IV Catheter Type (from Nrsg): Peripheral IV Central line still needed: No Urinary Cath still in place: No Assessment/Plan Assessment/Plan 1. Thyrotoxicosis-improving 2. Tachycardia-improving 3. Neck pain-decreased 4. Dehydration-improving 5. Weight loss 6. Osteoporosis 7. History of cholecystectomy 8. History of appendectomy 9. History of tonsillectomy 10. Anemia 11. Constipation, no GI workup was done. 12. Anxiety 13. Chest pain 14. Respiratory distress. 16. Hypokalemia controlled 15. Incomplete data. Result Diagram: 01/08/19 0511 01/08/19 0511 Results 24hrs Laboratory Tests Test 01/08/19 05:11 White Blood Count 9.2 Red Blood Count 3.53 L Hemoglobin 9.5 L Hematocrit 30.0 L Mean Corpuscular Volume 85.0 Mean Corpuscular Hemoglobin 26.9 L Mean Corpuscular Hemoglobin Concent 31.7 L Red Cell Distribution Width 13.9 Platelet Count 326 Mean Platelet Volume 10.4 Immature Granulocytes % 0.700 H Neutrophils % 73.4 Lymphocytes % 14.8 L Monocytes % 10.7 Eosinophils % 0.2 Basophils % 0.2 Nucleated Red Blood Cells % 0.0 Immature Granulocytes # 0.060 H Neutrophils # 6.8 Lymphocytes # 1.4 Monocytes # 1.0 H Eosinophils # 0.0 Basophils # 0.0 Nucleated Red Blood Cells # 0.0 Sodium Level 143 Potassium Level 3.5 Chloride Level 111 H Carbon Dioxide Level 28 Anion Gap 4 L Blood Urea Nitrogen 15 Creatinine 0.39 L Est Glomerular Filtrat Rate mL/min > 60 Glucose Level 126 Calcium Level 9.1 Subjective 24 Hr Interval Summary Free Text/Dictation I had a very high heart rate yesterday. Heart rate reached to the level of 160. I was more short of breath. No I feel better the pain intensity had decreased. My breathing improved. Called by RN last night stating that patient has not systolic blood pressure lower than 100 and Inderal was stopped. The patient rebounds of a heart rate reaching 160 level. Fluid bolus was given twice by 300 cc. He did not affect her blood pressure significantly changed in the lower lower. Not to stop it if systolic is less than 100 just to decrease to 30 mg when it is less than 120 mg when she is less than 90 and 10 mg a days at the range of 80 while continuing IV boluses at that time. Constitutional: improved, poor po, requiring IVF; No no complaints, No chills, No diaphoresis, No disoriented, No febrile, No requiring O2, No other Eyes: No no complaints, No pain, No discharge, No redness, No visual change, No other ENT: congestion, dysphagia, sore throat; No no complaints, No bleeding, No pain, No discharge, No other Respiratory: cough, shortness of breath; No no complaints, No pain, No pleuritic pain, No sputum, No wheezing, No other Cardiovascular: chest pain, lightheadedness, orthopenea, palpitations; No no complaints, No edema, No paroxysmal nocturnal dyspnea, No other Gastrointestinal: constipation, decreased appetite, flatus, passing stool; No no complaints, No pain, No blood, No diarrhea, No nausea, No vomiting, No other Genitourinary: dysuria; No no complaints, No bleeding, No discharge, No flank pain, No hematuria, No other Musculoskeletal: bone/joint pain, neck pain; No no complaints, No back pain, No restricted range of motion, No swelling, No other Skin: pruritis; No no complaints, No bruising, No erythema, No laceration, No rash, No skin lesions, No other Neurologic: confusion, dizziness, headache; No no complaints, No focal-weakness, No syncope, No seizure, No other Endocrine: No no complaints, No polyuria, No polydypsia, No dry skin, No temp intolerance, No other Lymphatic: tender nodes; No no complaints, No adenopathy, No lymphadema, No other Psychological: anxiety, depression; No no complaints, No nl mood/affect, No confusion, No suicidal, No other Exam/Review of Systems Exam Vitals Vital Signs Date Temp Pulse Resp B/P (MAP) Pulse Ox O2 O2 Flow FiO2 Time Delivery Rate 01/08/19 101 114/56 18:48 (75) 01/08/19 98.1 18 94 Room Air 14:58 Intake and Output 01/07/19 01/07/19 01/08/19 1515:00 23:00 07:00 IntakeIntake Total 860 ml 660 ml 480 ml BalanceBalance 860 ml 660 ml 480 ml Constitutional: alert, oriented, well developed, distress, frail Psych: anxiety; No no complaints, No nl mood/affect, No confusion, No depression, No suicidal, No other Head: normocephalic, atraumatic; No lacerations, No hematomas, No other Eyes: nl conjunctiva, EOMI, nl lids, PERRL (Mildly erythematous and swollen); No nl sclera, No icteric, No fundi, disc, No other ENMT: nl external ears & nose, nl lips & teeth, nl nasal mucosa & septum; No mucosa pink and moist, No intubated, No tympanic membranes, No other Neck: non-tender (Mildly tender. It appears that the left side is more swollen than the right.); No supple, No jvd, No bruits, No masses, No thyromegaly, No nuchal rigidity, No other Respiratory: clear to auscultation, normal air movement, diminished breath sounds; No congested cough, No crackles/rales, No intercostal retraction, No labored breathing, No respirations, No tactile fremitus, No wheezing, No other Cardiovascular: regular rate and rhythm; No nl pulses, No bruits, No diastolic murmur, No edema, No gallop, No irregular rhythm, No jugular venous distention (JVD), No murmurs/extra sounds, No rub, No systolic murmur, No S3, No S4, No other Gastrointestinal: soft, non-tender, bowel sounds; No nl liver, spleen, No ascites, No distended, No firm, No hepatomegaly, No mass, No rebound or guarding, No splenomegaly, No surgical scars, No tender, No other Genitourinary - Female: other (Not done.); No nl adnexae, No nl external genitalia, No CMT, No CVA tenderness, No uterus Musculoskeletal: joint tenderness, muscle tone, muscle weakness, other (Severely decreased muscular tone.); No nl extremities to inspection, No nl gait and stance, No range of motion, No spine non-tender, No swelling Extremities: No normal pulses, No calf tenderness, No cyanosis, No clubbing, No edema, No pitting pedal edema, No palpable cord, No tenderness, No other Neurological: INSURANCE ACTUARY II-XII intact, confused, numbness; No nl mental status, No nl speech, No nl strength, No DTR's symmetric, No focal weakness, No lethargic, No reflexes, No unresponsive, No other Skin: nl turgor; No rash or lesions, No diaphoresis, No ecchymosis, No laceration, No puncture, No other Results Results 24hrs Laboratory Tests Test 01/08/19 05:11 White Blood Count 9.2 Red Blood Count 3.53 L Hemoglobin 9.5 L Hematocrit 30.0 L Mean Corpuscular Volume 85.0 Mean Corpuscular Hemoglobin 26.9 L Mean Corpuscular Hemoglobin Concent 31.7 L Red Cell Distribution Width 13.9 Platelet Count 326 Mean Platelet Volume 10.4 Immature Granulocytes % 0.700 H Neutrophils % 73.4 Lymphocytes % 14.8 L Monocytes % 10.7 Eosinophils % 0.2 Basophils % 0.2 Nucleated Red Blood Cells % 0.0 Immature Granulocytes # 0.060 H Neutrophils # 6.8 Lymphocytes # 1.4 Monocytes # 1.0 H Eosinophils # 0.0 Basophils # 0.0 Nucleated Red Blood Cells # 0.0 Sodium Level 143 Potassium Level 3.5 Chloride Level 111 H Carbon Dioxide Level 28 Anion Gap 4 L Blood Urea Nitrogen 15 Creatinine 0.39 L Est Glomerular Filtrat Rate mL/min > 60 Glucose Level 126 Calcium Level 9.1 Medications Medication Current Medications Dextrose/Sodium Chloride 1,000 ml @ 60 mls/hr [id number] IV Last administered on 01/08/19at 13:38; Admin Dose 60 MLS/HR; Start 01/06/19 at 01:30 Acetaminophen (Tylenol Tab) 500 mg Q8 PRN PO MILD PAIN(1-3)OR ELEVATED TEMP; Start 01/06/19 at 01:30 Ferric Sodium Gluconate Complex 125 mg/Sodium Chloride 100 ml @ 100 mls/hr DAILY@1300 IVPB Last administered on 01/08/19at 13:33; Admin Dose 100 MLS/HR; Start 01/07/19 at 13:00; Stop 01/09/19 at 13:59 Docusate Sodium/ Ferrous Fumarate (Darlene-Sequels) 1 tab BID PO Last administered on 01/08/19at 08:41; Admin Dose 1 TAB; Start 01/06/19 at 13:30; Stop 02/05/19 at 13:29 Acetaminophen/ Hydrocodone Bitart ([place] (5/325)) 1 tab Q8H PRN PO MODERATE PAIN LEVEL 4-6 Last administered on 01/08/19 08:41; Admin Dose 1 TAB; Start 01/07/19 at 02:00 Methimazole (Tapazole) 30 mg BID PO Last administered on 01/08/19 08:41; Admin Dose 30 MG; Start 01/07/19 at 21:00 Pantoprazole (Protonix Tab) 40 mg DAILY@06 PO Last administered on 01/08/19 05:58; Admin Dose 40 MG; Start 01/08/19 at 06:00 Celecoxib (Celebrex) 100 mg BID PO Last administered on 01/08/19 08:41; Admin Dose 100 MG; Start 01/07/19 at 21:00 Propranolol HCl (Inderal) 40 mg Q6 PO Last administered on 01/08/19 18:48; Admin Dose 40 MG; Start 01/08/19 at 12:00 Ondansetron HCl (Zofran Inj) 4 mg Q6H PRN IV NAUSEA AND/OR VOMITING Last administered on 01/08/19 06:33; Admin Dose 4 MG; Start 01/08/19 at 06:30 Prednisone (Prednisone) 40 mg DAILY PO ; Start 01/09/19 at 09:00 GALLO HUMMEL MD Jan 08, 2019 20:29
[2019-01-09 02:00] VITALS: BP 108/55; PULSE 99; RESP 18
[2019-01-09] MEDS: PROPRANOLOL 40 MG TAB PO SCH ×4 (06:19→17:43)
[2019-01-09] MEDS: PANTOPRAZOLE (EC) 40 MG TAB PO SCH (06:19)
[2019-01-09] MEDS: HYDROCODONE/APAP (5/325) TAB PO PRN (06:21)
[2019-01-09 08:00] VITALS: BP 95/51; PULSE 99; RESP 17
[2019-01-09] MEDS: DEXTROSE 5%-0.9% NACL 1,000 ML IV SCH (09:25)
[2019-01-09] MEDS: predniSONE 20 MG TAB PO SCH (09:26)
[2019-01-09] MEDS: CELECOXIB 100 MG CAP PO SCH ×2 (09:26→21:49)
[2019-01-09] MEDS: FERROUS FUMARATE (SR) TAB PO SCH ×2 (09:26→21:49)
[2019-01-09] MEDS: METHIMAZOLE 5 MG TAB PO SCH ×2 (09:27→21:49)
[2019-01-09] MEDS: SOD FERRIC GLUC COMPLX 125 MG in SOD CHLORIDE 0.9% 100 ML IVPB SCH (13:35)
--- NOTE | 2019-01-09 13:51 | CONS ---
Assessment/Plan Assessment/Plan Problems: (1) Goiter with hyperthyroidism Status: Acute Comment: This is an unfortunate mixed picture. Elevated ESR and tender thyroid would suggest subacute thyroiditis as etiology of thyrotoxicosis. However, there is apparent h/o thyrotoxicosis in past. Furthermore pt. w/ nodules, at least 2 of which need FNA based on TIRADs criteria, TR3 > 2.5 cm and TR 5 that is > 1 cm (actually > 3 cm). However, agree w/ my colleague that I would not perform FNA until thyroid uptake and scan could be performed to r/o cold or hot nodules. Would continue current therapy: prednisone and celebrex for presumed subacute thyroiditis, methimazole for possible h/o TMNG, and beta blockade for symptoms which does have her HR at goal. Pt. can be d/c'ed home on this regimen any time the primary team sees fit and should have f/u w/ endo in 1 month. If still here will reeval tomorrow. Consultation Date/Type/Reason Admit Date/Time Jan 05, 2019 at 23:27 Initial Consult Date 01/06/19 Type of Consult Endocrinology Reason for Consultation Thyrotoxicosis Requesting Provider: GALLO HUMMEL MD Date/Time of Note DATE: 01/09/19 TIME: 13:45 24 HR Interval Summary Constitutional: no complaints, improved, diaphoresis Detailed Summary ENT: pain (in L thyroid this am, improved w/ medication) Respiratory: no complaints Cardiovascular: no complaints Gastrointestinal: no complaints Genitourinary: no complaints Musculoskeletal: no complaints Neurologic: no complaints Exam/Review of Systems Exam Vitals VS - Last 72 Hours, by Label Date Temp Pulse Resp B/P (MAP) Pulse Ox O2 O2 Flow FiO2 Time Delivery Rate 01/09/19 99.1 99 17 95/51 (66) 95 Room Air 08:00 01/09/19 98.5 99 18 108/55 95 Room Air 02:00 (72) 01/08/19 98.0 101 18 117/59 98 Room Air 20:00 (78) 01/08/19 101 114/56 18:48 (75) 01/08/19 98.1 98 18 100/59 94 Room Air 14:58 (73) 01/08/19 91 13:36 01/08/19 98.5 125 18 115/58 96 Room Air 08:25 (77) 01/08/19 98.3 136 111/56 96 Room Air 02:00 (74) 01/07/19 116 98/58 (71) 22:22 01/07/19 98.2 125 97/55 (69) 96 Room Air 21:31 01/07/19 97.5 146 18 101/71 96 20:00 (81) 01/07/19 97.8 129 110/71 15:14 (84) 01/07/19 98.2 18 94/58 (70) 96 13:54 01/07/19 98.8 105 18 113/56 95 08:34 (75) 01/07/19 103 123/66 05:50 (85) 01/07/19 98.6 107 18 118/58 96 02:00 (78) 01/06/19 101 106/61 21:02 (76) 01/06/19 98.1 99 18 110/55 95 20:00 (73) 01/06/19 98.4 101 18 126/57 97 14:00 (80) Vital Signs Date Temp Pulse Resp B/P (MAP) Pulse Ox O2 O2 Flow FiO2 Time Delivery Rate 01/09/19 99.1 99 17 95/51 (66) 95 Room Air 08:00 Intake and Output 01/08/19 01/08/19 01/09/19 1515:00 23:00 07:00 IntakeIntake Total 740 ml 450 ml 720 ml BalanceBalance 740 ml 450 ml 720 ml Constitutional: alert, oriented, well developed Psych: no complaints, nl mood/affect Neck: supple, thyromegaly ((+) B thyroid nodules, L larger and firmer than R); No non-tender (thyroid TTP on L side), No bruits Respiratory: clear to auscultation, normal air movement Cardiovascular: regular rate and rhythm, nl pulses; No edema, No murmurs/extra sounds, No rub Gastrointestinal: soft, nl liver, spleen, non-tender, bowel sounds; No mass, No rebound or guarding Musculoskeletal: nl extremities to inspection Extremities: normal pulses; No cyanosis, No clubbing, No edema Neurological: RELIGIOUS ACTIVITIES DIRECTOR II-XII intact, nl mental status, nl speech, nl strength, other ((+) resting tremor) Results Result Diagram: 01/09/19 0540 01/09/19 0540 Results 24hrs Laboratory Tests Test 01/09/19 05:40 White Blood Count 8.7 Red Blood Count 3.28 L Hemoglobin 8.8 L Hematocrit 28.2 L Mean Corpuscular Volume 86.0 Mean Corpuscular Hemoglobin 26.8 L Mean Corpuscular Hemoglobin Concent 31.2 L Red Cell Distribution Width 14.1 Platelet Count 310 Mean Platelet Volume 10.6 H Immature Granulocytes % 0.500 H Neutrophils % 70.6 Lymphocytes % 18.7 Monocytes % 9.8 Eosinophils % 0.2 Basophils % 0.2 Nucleated Red Blood Cells % 0.0 Immature Granulocytes # 0.040 H Neutrophils # 6.2 Lymphocytes # 1.6 Monocytes # 0.9 Eosinophils # 0.0 Basophils # 0.0 Nucleated Red Blood Cells # 0.0 Erythrocyte Sedimentation Rate 83 H Sodium Level 143 Potassium Level 4.0 Chloride Level 110 Carbon Dioxide Level 28 Anion Gap 5 Blood Urea Nitrogen 15 Creatinine 0.40 L Est Glomerular Filtrat Rate mL/min > 60 Glucose Level 106 Calcium Level 9.4 Total Bilirubin 0.2 Direct Bilirubin 0.00 Indirect Bilirubin 0.2 Aspartate Amino Transf (AST/SGOT) 24 Alanine Aminotransferase (ALT/SGPT) 24 Alkaline Phosphatase 95 Total Protein 5.6 L Albumin 2.8 L Globulin 2.80 Albumin/Globulin Ratio 1.00 Free Thyroxine 5.61 H Free Triiodothyronine (T3) pg/mL 15.00 H Medications Medication Current Medications Dextrose/Sodium Chloride 1,000 ml @ 60 mls/hr [id number] IV Last administered on 01/09/19at 09:25; Admin Dose 60 MLS/HR; Start 01/06/19 at 01:30 Acetaminophen (Tylenol Tab) 500 mg Q8 PRN PO MILD PAIN(1-3)OR ELEVATED TEMP; Start 01/06/19 at 01:30 Ferric Sodium Gluconate Complex 125 mg/Sodium Chloride 100 ml @ 100 mls/hr DAILY@1300 IVPB Last administered on 01/09/19at 13:35; Admin Dose 100 MLS/HR; Start 01/07/19 at 13:00; Stop 01/09/19 at 13:59 Docusate Sodium/ Ferrous Fumarate (Darlene-Sequels) 1 tab BID PO Last administered on 01/09/19at 09:26; Admin Dose 1 TAB; Start 01/06/19 at 13:30; Stop 02/05/19 at 13:29 Acetaminophen/ Hydrocodone Bitart ([place] (5/325)) 1 tab Q8H PRN PO MODERATE PAIN LEVEL 4-6 Last administered on 01/09/19 06:21; Admin Dose 1 TAB; Start 01/07/19 at 02:00 Methimazole (Tapazole) 30 mg BID PO Last administered on 01/09/19 09:27; Admin Dose 30 MG; Start 01/07/19 at 21:00 Pantoprazole (Protonix Tab) 40 mg DAILY@06 PO Last administered on 01/09/19 06:19; Admin Dose 40 MG; Start 01/08/19 at 06:00 Celecoxib (Celebrex) 100 mg BID PO Last administered on 01/09/19 09:26; Admin Dose 100 MG; Start 01/07/19 at 21:00 Propranolol HCl (Inderal) 40 mg Q6 PO Last administered on 01/09/19at 12:58; Admin Dose 40 MG; Start 01/08/19 at 12:00 Ondansetron HCl (Zofran Inj) 4 mg Q6H PRN IV NAUSEA AND/OR VOMITING Last administered on 01/08/19 06:33; Admin Dose 4 MG; Start 01/08/19 at 06:30 Prednisone (Prednisone) 40 mg DAILY PO Last administered on 01/09/19 09:26; Admin Dose 40 MG; Start 01/09/19 at 09:00 JANETTE LEVINE MD Jan 09, 2019 13:51
[2019-01-09 14:50] VITALS: BP 99/55; PULSE 100; RESP 17
--- NOTE | 2019-01-09 17:52 | PN ---
Date/Time of Note Date/Time of Note DATE: 01/09/19 TIME: 17:51 Assessment/Plan VTE Prophylaxis Risk score (from Ns)>0 risk: 2 SCD applied (from Ns): No SCD contraindicated: low risk/ambulating Pharmacological prophylaxis: LMWH Lines/Catheters IV Catheter Type (from Nrs): Peripheral IV Central line still needed: No Urinary Cath still in place: No Reason Cath still needed: urinary retention Assessment/Plan Assessment/Plan 1. Thyrotoxicosis-improving 2. Tachycardia-improving 3. Neck pain-decreased 4. Dehydration-improving 5. Weight loss 6. Osteoporosis 7. History of cholecystectomy 8. History of appendectomy 9. History of tonsillectomy 10. Anemia 11. Constipation, no GI workup was done. 12. Anxiety 13. Chest pain 14. Respiratory distress. 16. Hypokalemia controlled 15. Incomplete data. Result Diagram: 01/09/19 0540 01/09/19 0540 Results 24hrs Laboratory Tests Test 01/09/19 05:40 White Blood Count 8.7 Red Blood Count 3.28 L Hemoglobin 8.8 L Hematocrit 28.2 L Mean Corpuscular Volume 86.0 Mean Corpuscular Hemoglobin 26.8 L Mean Corpuscular Hemoglobin Concent 31.2 L Red Cell Distribution Width 14.1 Platelet Count 310 Mean Platelet Volume 10.6 H Immature Granulocytes % 0.500 H Neutrophils % 70.6 Lymphocytes % 18.7 Monocytes % 9.8 Eosinophils % 0.2 Basophils % 0.2 Nucleated Red Blood Cells % 0.0 Immature Granulocytes # 0.040 H Neutrophils # 6.2 Lymphocytes # 1.6 Monocytes # 0.9 Eosinophils # 0.0 Basophils # 0.0 Nucleated Red Blood Cells # 0.0 Erythrocyte Sedimentation Rate 83 H Sodium Level 143 Potassium Level 4.0 Chloride Level 110 Carbon Dioxide Level 28 Anion Gap 5 Blood Urea Nitrogen 15 Creatinine 0.40 L Est Glomerular Filtrat Rate mL/min > 60 Glucose Level 106 Calcium Level 9.4 Total Bilirubin 0.2 Direct Bilirubin 0.00 Indirect Bilirubin 0.2 Aspartate Amino Transf (AST/SGOT) 24 Alanine Aminotransferase (ALT/SGPT) 24 Alkaline Phosphatase 95 Total Protein 5.6 L Albumin 2.8 L Globulin 2.80 Albumin/Globulin Ratio 1.00 Free Thyroxine 5.61 H Free Triiodothyronine (T3) pg/mL 15.00 H Subjective 24 Hr Interval Summary Free Text/Dictation Decreased neck pain; decreased frequency of heartbeats; decreased chest pain. I feel better today. Constitutional: poor po; No no complaints, No improved, No chills, No diaphoresis, No disoriented, No febrile, No requiring IVF, No requiring O2, No other ENT: dysphagia, sore throat; No no complaints, No bleeding, No pain, No congestion, No discharge, No other Cardiovascular: edema, lightheadedness, orthopenea, palpitations; No no complaints, No chest pain, No paroxysmal nocturnal dyspnea, No other Gastrointestinal: constipation, passing stool; No no complaints, No pain, No blood, No decreased appetite, No diarrhea, No flatus, No nausea, No vomiting, No other Genitourinary: No no complaints, No bleeding, No dysuria, No discharge, No flank pain, No hematuria, No other Musculoskeletal: back pain, neck pain, restricted range of motion; No no complaints, No bone/joint pain, No swelling, No other Skin: No no complaints, No bruising, No erythema, No laceration, No pruritis, No rash, No skin lesions, No other Neurologic: No no complaints, No confusion, No dizziness, No focal-weakness, No headache, No syncope, No seizure, No other Endocrine: dry skin; No no complaints, No polyuria, No polydypsia, No temp intolerance, No other Exam/Review of Systems Exam Vitals Vital Signs Date Temp Pulse Resp B/P (MAP) Pulse Ox O2 O2 Flow FiO2 Time Delivery Rate 01/09/19 98.0 100 17 99/55 (70) 96 Room Air 14:50 Intake and Output 01/08/19 01/08/19 01/09/19 1414:59 22:59 06:59 IntakeIntake Total 740 ml 450 ml 720 ml BalanceBalance 740 ml 450 ml 720 ml Constitutional: alert, oriented, well developed, distress; No non-verbal, No frail, No obese, No other Psych: anxiety; No no complaints, No nl mood/affect, No confusion, No depression, No suicidal, No other Head: No normocephalic, No atraumatic, No lacerations, No hematomas, No other Eyes: nl conjunctiva, EOMI, nl lids; No nl sclera, No PERRL, No icteric, No fundi, disc, No other ENMT: No nl external ears & nose, No nl lips & teeth, No nl nasal mucosa & septum, No mucosa pink and moist, No intubated, No tympanic membranes, No other Neck: supple, bruits; No non-tender, No jvd, No masses, No thyromegaly, No nuchal rigidity, No other Respiratory: normal air movement, congested cough, diminished breath sounds; No clear to auscultation, No crackles/rales, No intercostal retraction, No labored breathing, No respirations, No tactile fremitus, No wheezing, No other Cardiovascular: regular rate and rhythm, bruits, edema, jugular venous distention (JVD), systolic murmur; No nl pulses, No diastolic murmur, No gallop, No irregular rhythm, No murmurs/extra sounds, No rub, No S3, No S4, No other Gastrointestinal: soft, nl liver, spleen, bowel sounds; No non-tender, No ascites, No distended, No firm, No hepatomegaly, No mass, No rebound or guarding, No splenomegaly, No surgical scars, No tender, No other Musculoskeletal: nl gait and stance, joint tenderness, muscle tone, muscle weakness; No nl extremities to inspection, No range of motion, No spine non-tender, No swelling, No other Extremities: No normal pulses, No calf tenderness, No cyanosis, No clubbing, No edema, No pitting pedal edema, No palpable cord, No tenderness, No other Neurological: CONSERVATION BIOLOGY PROFESSOR II-XII intact, confused, numbness; No nl mental status, No nl speech, No nl strength, No DTR's symmetric, No focal weakness, No lethargic, No reflexes, No unresponsive, No other Skin: nl turgor Results Results 24hrs Laboratory Tests Test 01/09/19 05:40 White Blood Count 8.7 Red Blood Count 3.28 L Hemoglobin 8.8 L Hematocrit 28.2 L Mean Corpuscular Volume 86.0 Mean Corpuscular Hemoglobin 26.8 L Mean Corpuscular Hemoglobin Concent 31.2 L Red Cell Distribution Width 14.1 Platelet Count 310 Mean Platelet Volume 10.6 H Immature Granulocytes % 0.500 H Neutrophils % 70.6 Lymphocytes % 18.7 Monocytes % 9.8 Eosinophils % 0.2 Basophils % 0.2 Nucleated Red Blood Cells % 0.0 Immature Granulocytes # 0.040 H Neutrophils # 6.2 Lymphocytes # 1.6 Monocytes # 0.9 Eosinophils # 0.0 Basophils # 0.0 Nucleated Red Blood Cells # 0.0 Erythrocyte Sedimentation Rate 83 H Sodium Level 143 Potassium Level 4.0 Chloride Level 110 Carbon Dioxide Level 28 Anion Gap 5 Blood Urea Nitrogen 15 Creatinine 0.40 L Est Glomerular Filtrat Rate mL/min > 60 Glucose Level 106 Calcium Level 9.4 Total Bilirubin 0.2 Direct Bilirubin 0.00 Indirect Bilirubin 0.2 Aspartate Amino Transf (AST/SGOT) 24 Alanine Aminotransferase (ALT/SGPT) 24 Alkaline Phosphatase 95 Total Protein 5.6 L Albumin 2.8 L Globulin 2.80 Albumin/Globulin Ratio 1.00 Free Thyroxine 5.61 H Free Triiodothyronine (T3) pg/mL 15.00 H Medications Medication Current Medications Dextrose/Sodium Chloride 1,000 ml @ 60 mls/hr [id number] IV Last administered on 01/09/19 09:25; Admin Dose 60 MLS/HR; Start 01/06/19 at 01:30 Acetaminophen (Tylenol Tab) 500 mg Q8 PRN PO MILD PAIN(1-3)OR ELEVATED TEMP; Start 01/06/19 at 01:30 Docusate Sodium/ Ferrous Fumarate (Darlene-Sequels) 1 tab BID PO Last administered on 01/09/19 09:26; Admin Dose 1 TAB; Start 01/06/19 at 13:30; Stop 02/05/19 at 13:29 Acetaminophen/ Hydrocodone Bitart ([place] (5/325)) 1 tab Q8H PRN PO MODERATE PAIN LEVEL 4-6 Last administered on 01/09/19 06:21; Admin Dose 1 TAB; Start 01/07/19 at 02:00 Methimazole (Tapazole) 30 mg BID PO Last administered on 01/09/19 09:27; Admin Dose 30 MG; Start 01/07/19 at 21:00 Pantoprazole (Protonix Tab) 40 mg DAILY@06 PO Last administered on 01/09/19 06:19; Admin Dose 40 MG; Start 01/08/19 at 06:00 Celecoxib (Celebrex) 100 mg BID PO Last administered on 01/09/19 09:26; Admin Dose 100 MG; Start 01/07/19 at 21:00 Propranolol HCl (Inderal) 40 mg Q6 PO Last administered on 01/09/19at 17:43; Admin Dose 40 MG; Start 01/08/19 at 12:00 Ondansetron HCl (Zofran Inj) 4 mg Q6H PRN IV NAUSEA AND/OR VOMITING Last administered on 01/08/19 06:33; Admin Dose 4 MG; Start 01/08/19 at 06:30 Prednisone (Prednisone) 40 mg DAILY PO Last administered on 01/09/19at 09:26; Admin Dose 40 MG; Start 01/09/19 at 09:00 GALLO HUMMEL MD Jan 09, 2019 17:52
[2019-01-09 20:00] VITALS: BP 111/54; PULSE 94; RESP 18
[2019-01-10] MEDS: PROPRANOLOL 40 MG TAB PO SCH ×5 (00:21→17:28)
[2019-01-10 02:00] VITALS: BP 114/56; PULSE 94; RESP 18
[2019-01-10] MEDS: PANTOPRAZOLE (EC) 40 MG TAB PO SCH ×2 (05:05→08:25)
[2019-01-10] MEDS: DEXTROSE 5%-0.9% NACL 1,000 ML IV SCH (05:05)
[2019-01-10 08:15] VITALS: BP 117/56; PULSE 98; RESP 19
[2019-01-10] MEDS: CELECOXIB 100 MG CAP PO SCH ×2 (08:25→20:47)
[2019-01-10] MEDS: FERROUS FUMARATE (SR) TAB PO SCH ×2 (08:25→20:47)
[2019-01-10] MEDS: METHIMAZOLE 5 MG TAB PO SCH ×2 (08:25→20:47)
[2019-01-10] MEDS: predniSONE 20 MG TAB PO SCH (08:25)
--- NOTE | 2019-01-10 13:25 | PN ---
Date/Time of Note Date/Time of Note DATE: 01/10/19 TIME: 13:21 Assessment/Plan VTE Prophylaxis Risk score (from Ns)>0 risk: 2 SCD applied (from Ns): No SCD contraindicated: low risk/ambulating Pharmacological prophylaxis: LMWH Lines/Catheters IV Catheter Type (from Nrsg): Peripheral IV Central line still needed: No Urinary Cath still in place: No Reason Cath still needed: urinary retention Assessment/Plan Assessment/Plan 1. Thyrotoxicosis-improving 2. Tachycardia-improving 3. Neck pain-decreased 4. Dehydration-improving 5. Weight loss 6. Osteoporosis 7. History of cholecystectomy 8. History of appendectomy 9. History of tonsillectomy 10. Anemia 11. Constipation, no GI workup was done. 12. Anxiety 13. Chest pain 14. Respiratory distress. 16. Hypokalemia controlled 17.CHF- stop iv. 18. Incomplete data. Result Diagram: 01/09/19 0540 01/09/19 0540 Subjective 24 Hr Interval Summary Constitutional: diaphoresis, poor po, requiring IVF; No no complaints, No improved, No chills, No disoriented, No febrile, No requiring O2, No other Eyes: No no complaints, No pain, No discharge, No redness, No visual change, No other ENT: other (Decreased swelling of the thyroid gland more prominent on the right than left side.); No no complaints, No bleeding, No pain, No congestion, No discharge, No dysphagia, No sore throat Respiratory: No no complaints, No pain, No cough, No pleuritic pain, No shortness of breath, No sputum, No wheezing, No other Cardiovascular: chest pain, edema, lightheadedness, palpitations (Less prominent.); No no complaints, No orthopenea, No paroxysmal nocturnal dyspnea, No other Gastrointestinal: nausea, passing stool; No no complaints, No pain, No blood, No constipation, No decreased appetite, No diarrhea, No flatus, No vomiting, No other Genitourinary: dysuria; No no complaints, No bleeding, No discharge, No flank pain, No hematuria, No other Exam/Review of Systems Exam Vitals Vital Signs Date Temp Pulse Resp B/P (MAP) Pulse Ox O2 O2 Flow FiO2 Time Delivery Rate 01/10/19 98.5 98 19 117/56 95 Room Air 08:15 (76) Intake and Output 01/09/19 01/09/19 01/10/19 1515:00 23:00 07:00 IntakeIntake Total 170 ml 1250 ml 1410 ml BalanceBalance 170 ml 1250 ml 1410 ml Constitutional: alert, oriented, well developed; No non-verbal, No distress, No frail, No obese, No other Psych: no complaints, anxiety; No nl mood/affect, No confusion, No depression, No suicidal, No other Head: normocephalic, atraumatic; No lacerations, No hematomas, No other Eyes: EOMI; No nl conjunctiva, No nl lids, No nl sclera, No PERRL, No icteric, No fundi, disc, No other ENMT: No nl external ears & nose, No nl lips & teeth, No nl nasal mucosa & septum, No mucosa pink and moist, No intubated, No tympanic membranes, No other Neck: bruits, nuchal rigidity; No supple, No non-tender, No jvd, No masses, No thyromegaly, No other Respiratory: congested cough, diminished breath sounds; No clear to auscultation, No normal air movement, No crackles/rales, No intercostal retraction, No labored breathing, No respirations, No tactile fremitus, No wheezing, No other Cardiovascular: regular rate and rhythm, systolic murmur; No nl pulses, No bruits, No diastolic murmur, No edema, No gallop, No irregular rhythm, No jugular venous distention (JVD), No murmurs/extra sounds, No rub, No S3, No S4, No other Gastrointestinal: soft, nl liver, spleen, bowel sounds; No non-tender, No ascites, No distended, No firm, No hepatomegaly, No mass, No rebound or guarding, No splenomegaly, No surgical scars, No tender, No other Musculoskeletal: joint tenderness, muscle tone, muscle weakness, spine non- tender; No nl extremities to inspection, No nl gait and stance, No range of motion, No swelling, No other Extremities: No normal pulses, No calf tenderness, No cyanosis, No clubbing, No edema, No pitting pedal edema, No palpable cord, No tenderness, No other Neurological: PRECISION CROP MANAGER II-XII intact, nl mental status, nl speech, nl strength; No confused, No DTR's symmetric, No focal weakness, No lethargic, No numbness, No reflexes, No unresponsive, No other Medications Medication Current Medications Dextrose/Sodium Chloride 1,000 ml @ 60 mls/hr [id number] IV Last administered on 01/10/19 05:05; Admin Dose 60 MLS/HR; Start 01/06/19 at 01:30 Acetaminophen (Tylenol Tab) 500 mg Q8 PRN PO MILD PAIN(1-3)OR ELEVATED TEMP; Start 01/06/19 at 01:30 Docusate Sodium/ Ferrous Fumarate (Darlene-Sequels) 1 tab BID PO Last administered on 01/10/19 08:25; Admin Dose 1 TAB; Start 01/06/19 at 13:30; Stop 02/05/19 at 13:29 Acetaminophen/ Hydrocodone Bitart ([place] (5/325)) 1 tab Q8H PRN PO MODERATE SREEDHAR N LEVEL 4-6 Last administered on 01/09/19 06:21; Admin Dose 1 TAB; Start 01/07/19 at 02:00 Methimazole (Tapazole) 30 mg BID PO Last administered on 01/10/19 08:25; Admin Dose 30 MG; Start 01/07/19 at 21:00 Pantoprazole (Protonix Tab) 40 mg DAILY@06 PO Last administered on 01/10/19 08:25; Admin Dose 40 MG; Start 01/08/19 at 06:00 Celecoxib (Celebrex) 100 mg BID PO Last administered on 01/10/19 08:25; Admin Dose 100 MG; Start 01/07/19 at 21:00 Propranolol HCl (Inderal) 40 mg Q6 PO Last administered on 01/10/19 11:22; Admin Dose 40 MG; Start 01/08/19 at 12:00 Ondansetron HCl (Zofran Inj) 4 mg Q6H PRN IV NAUSEA AND/OR VOMITING Last administered on 01/08/19 06:33; Admin Dose 4 MG; Start 01/08/19 at 06:30 Prednisone (Prednisone) 40 mg DAILY PO Last administered on 01/10/19 08:25; Admin Dose 40 MG; Start 01/09/19 at 09:00 GALLO HUMMEL MD Jan 10, 2019 13:25
--- NOTE | 2019-01-10 13:55 | CONS ---
Assessment/Plan Assessment/Plan Problems: (1) Goiter with hyperthyroidism Status: Acute Comment: Diagnosis unclear: subacute thyroiditis vs. TMNG w/ 2 nodules requiring FNA on ultrasound. Cont. treatment w/ both prednisone and NSAIDs as these have shown improvement in clinical symptoms. Cont. treatment w/ methimazole. Plan nuclear scan in the future to eval nodules once acute symptoms resolved. Once pt. ready for d/c would plan to d/c on prednisone and NSAIDs along w/ methimazole. (2) Tachycardia Status: Acute Comment: Controlled. Cont. inderal. Consultation Date/Type/Reason Admit Date/Time Jan 05, 2019 at 23:27 Initial Consult Date 01/06/19 Type of Consult Endocrinology Reason for Consultation Thyrotoxicosis Requesting Provider: GALLO HUMMEL MD Date/Time of Note DATE: 01/10/19 TIME: 13:51 24 HR Interval Summary Constitutional: improved, diaphoresis Detailed Summary ENT: pain (minimal pain when she sleeps w/ her head tilted to the L) Respiratory: no complaints Cardiovascular: edema; No lightheadedness (although BP number has been low), No palpitations Gastrointestinal: no complaints Genitourinary: no complaints Musculoskeletal: no complaints Neurologic: other ((+) tremor) Exam/Review of Systems Exam Vitals VS - Last 72 Hours, by Label Date Temp Pulse Resp B/P (MAP) Pulse Ox O2 O2 Flow FiO2 Time Delivery Rate 01/10/19 98.5 98 19 117/56 95 Room Air 08:15 (76) 01/10/19 98.1 94 18 114/56 97 Room Air 02:00 (75) 01/09/19 98.4 94 18 111/54 97 Room Air 20:00 (73) 01/09/19 98.0 100 17 99/55 (70) 96 Room Air 14:50 01/09/19 99.1 99 17 95/51 (66) 95 Room Air 08:00 01/09/19 98.5 99 18 108/55 95 Room Air 02:00 (72) 01/08/19 98.0 101 18 117/59 98 Room Air 20:00 (78) 01/08/19 101 114/56 18:48 (75) 01/08/19 98.1 98 18 100/59 94 Room Air 14:58 (73) 01/08/19 91 13:36 4/5/19 98.5 125 18 115/58 96 Room Air 08:25 (77) 01/08/19 98.3 136 111/56 96 Room Air 02:00 (74) 01/07/19 116 98/58 (71) 22:22 01/07/19 98.2 125 97/55 (69) 96 Room Air 21:31 01/07/19 97.5 146 18 101/71 96 20:00 (81) 01/07/19 97.8 129 110/71 15:14 (84) 01/07/19 98.2 18 94/58 (70) 96 13:54 Vital Signs Date Temp Pulse Resp B/P (MAP) Pulse Ox O2 O2 Flow FiO2 Time Delivery Rate 01/10/19 98.5 98 19 117/56 95 Room Air 08:15 (76) Intake and Output 01/09/19 01/09/19 01/10/19 1515:00 23:00 07:00 IntakeIntake Total 170 ml 1250 ml 1410 ml BalanceBalance 170 ml 1250 ml 1410 ml Constitutional: alert, oriented, well developed Psych: no complaints, nl mood/affect Neck: thyromegaly; No non-tender (tender on L side), No bruits Respiratory: clear to auscultation, normal air movement Cardiovascular: regular rate and rhythm, nl pulses; No edema, No murmurs/extra sounds, No rub Gastrointestinal: soft, nl liver, spleen, non-tender, bowel sounds; No mass, No rebound or guarding Musculoskeletal: nl extremities to inspection Extremities: normal pulses; No cyanosis, No clubbing, No edema 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, nl mental status, nl speech, nl strength, other ((+) resting tremor) Results Result Diagram: 01/09/1953901/09/19539 Medications Medication Current Medications Dextrose/Sodium Chloride 1,000 ml @ 30 mls/hr Q24H IV Last administered on 01/10/19at 05:05; Admin Dose 60 MLS/HR; Start 01/06/19 at 01:30 Acetaminophen (Tylenol Tab) 500 mg Q8 PRN PO MILD PAIN(1-3)OR ELEVATED TEMP; Start 01/06/19 at 01:30 Docusate Sodium/ Ferrous Fumarate (Darlene-Sequels) 1 tab BID PO Last administered on 01/10/19 08:25; Admin Dose 1 TAB; Start 01/06/19 at 13:30; Stop 02/05/19 at 13:29 Acetaminophen/ Hydrocodone Bitart ([place] (5/325)) 1 tab Q8H PRN PO MODERATE PAIN LEVEL 4-6 Last administered on 01/09/19 06:21; Admin Dose 1 TAB; Start 01/07/19 at 02:00 Methimazole (Tapazole) 30 mg BID PO Last administered on 01/10/19 08:25; Admin Dose 30 MG; Start 01/07/19 at 21:00 Pantoprazole (Protonix Tab) 40 mg DAILY@06 PO Last administered on 01/10/19 08:25; Admin Dose 40 MG; Start 01/08/19 at 06:00 Celecoxib (Celebrex) 100 mg BID PO Last administered on 01/10/19 08:25; Admin Dose 100 MG; Start 01/07/19 at 21:00 Propranolol HCl (Inderal) 40 mg Q6 PO Last administered on 01/10/19 11:22; Admin Dose 40 MG; Start 01/08/19 at 12:00 Ondansetron HCl (Zofran Inj) 4 mg Q6H PRN IV NAUSEA AND/OR VOMITING Last administered on 01/08/19 06:33; Admin Dose 4 MG; Start 01/08/19 at 06:30 Prednisone (Prednisone) 40 mg DAILY PO Last administered on 01/10/19 08:25; Admin Dose 40 MG; Start 01/09/19 at 09:00 JANETTE LEVINE MD Jan 10, 2019 13:55
--- NOTE | 2019-01-10 14:24 | PDOCDIS ---
Discharge Instructions DIAGNOSIS Discharge Diagnosis 1. Thyrotoxicosis-improving 2. Tachycardia-improving 3. Neck pain-decreased 4. Dehydration-improving 5. Weight loss 6. Osteoporosis 7. History of cholecystectomy 8. History of appendectomy 9. History of tonsillectomy 10. Anemia 11. Constipation, no GI workup was done. 12. Anxiety 13. Chest pain 14. Respiratory distress. 16. Hypokalemia controlled 17.CHF-improved 18. Incomplete data. Result Diagram: CONDITION [id number] Patient Condition: [id number] Guarded HOME CARE INSTRUCTIONS: [id number] Diet Instructions: [id number] Reduced Sodium ACTIVITY: [id number] Activity Restrictions: [id number] Slowly Increase Activity FOLLOW UP/APPOINTMENTS Follow-up Plan In 5 days to primary care physician. In [address]. Roth In 7-[address] Mccarty. SCHOOL/WORK RELEASE May return to School/Work with: none. GALLO HUMMEL MD Jan 10, 2019 14:24
[2019-01-10] MEDS ORDERED: FERR1TAB14 PO (14:29)
[2019-01-10] MEDS ORDERED: METH-493 PO (14:29)
[2019-01-10] MEDS ORDERED: PROP40TA4 PO (14:29)
[2019-01-10] MEDS ORDERED: PANT40TA4 PO (14:29)
[2019-01-10] MEDS ORDERED: Acetaminophen PO (14:29)
[2019-01-10] MEDS ORDERED: PRED20TA PO (14:29)
[2019-01-10] MEDS ORDERED: CELE100C PO (14:29)
[2019-01-10] MEDS ORDERED: HYDR-3601 PO (14:29)
[2019-01-10 14:51] VITALS: BP 103/51; PULSE 92; RESP 18
[2019-01-10 20:13] VITALS: BP 116/55; PULSE 91; RESP 18
[2019-01-11] MEDS: PROPRANOLOL 40 MG TAB PO SCH ×5 (00:17→23:48)
[2019-01-11 02:15] VITALS: BP 113/56; PULSE 95; RESP 18
[2019-01-11] MEDS: PANTOPRAZOLE (EC) 40 MG TAB PO SCH (06:17)
--- NOTE | 2019-01-11 07:36 | CONS ---
Assessment/Plan Assessment/Plan Hospital Course (Demo Recall) 63 yo female admitted with thyrotoxicosis was found to be anemic 1. Anemia, acute -Iron deficiency 2. Dark stools -melena vs PO Iron 3. thyroid disease 4. Thyrotoxicosis 5. Weight loss 6. Osteoporosis 7. CHF 8. Low attenuation lesions seen on CT of abd/pelvis without contrast done 12/05 03/24 as outpatient. Most likely cysts but neoplasm can not be r/o. -afp, cea, ca 19-9 -LFTs wnl. Plan: We would like to do EGD and colonoscopy tomorrow. I spoke with patient regarding both procedures, risks and benefits. Pt states she is too weak to do the procedures right now and wants to go home. I spoke with Dr. Tompkins who will speak with her. In the meantime I will set her up for tentative procedures tomorrow. No anti coagulants. AM labs. Bowel prep. Anemia work up, CEA and CA 19-9, AFP continue with Protonix Pt examined and plan of care discussed with Dr. Mccarty Consultation Date/Type/Reason Admit Date/Time Jan 05, 2019 at 23:27 Date/Time of Note DATE: 01/11/19 TIME: 07:32 Hx of Present Illness 63 yo female with h/o thyroid disease admitted with thyrotoxicosis. Pt is now stable and plan was to discharge patient except she was found to be anemic with HH at admission 11.0/34/5, which then fell to 9.5/30 and continues to wax and wane. She denies nausea or vomiting. No abdominal pain. States last bm 01/10 and is dark in color. Takes PO Iron at home. Denies fevers or chills. Denies constipation or diarrhea. She has never had EGD or colon. Iron low. TIBC wnl. She admits to some weight loss but unsure of how much. CT done of abd/pelvis as outpatient on 12/29/18 showed low attenuation lesions in the right and left liver lobe which appear to cysts but can not r/o neoplasms. Past Medical History Medical History: angina, congestive heart failure, coronary artery disease, gallstones, GERD, high cholesterol, hypertension, urinary tract infection Home Meds Active Scripts Prednisone* (Prednisone*) 20 Mg Tab, 40 MG PO DAILY for 30 Days, #120 TAB Prov:PILOSSYAN,VAGHARSHAK MD 01/10/19 Methimazole* (Methimazole*) 5 Mg Tablet, 30 MG PO BID for 30 Days, #120 TAB Prov:GALLO HUMMEL MD 01/10/19 Pantoprazole* (Pantoprazole*) 40 Mg Tablet.dr, 40 MG PO DAILY@06 for 30 Days, #30 Prov:GALLO HUMMEL MD 01/10/19 Hydrocodone Bit-Acetaminophen (Hydrocodone Bit-APAP) 5-325MG Tablet, 1 TAB PO Q8H PRN for MODERATE PAIN LEVEL 4-6 for 10 Days, #30 TAB Prov:GALLO HUMMEL MD 01/10/19 Celecoxib* (Celebrex*) 100 Mg Capsule, 100 MG PO BID for 30 Days, #60 CAP Prov:GALLO HUMMEL MD 01/10/19 [Acetaminophen Tab] 500 MG TAB No Conflict Check, 500 MG PO Q8 PRN for MILD PAIN(1-3)OR ELEVATED TEMP for 30 Days, #120 TAB Prov:GALLO HUMMEL MD 01/10/19 Propranolol Hcl* (Propranolol Hcl*) 40 Mg Tablet, 40 MG PO Q6 for 30 Days, #120 TAB Prov:GALLO HUMMEL MD 01/10/19 Ferrous Fumarate/Ascorbic Acid (Darlene-Sequels 65-25 mg Caplet) 1 Each Tablet.er, 1 TAB PO BID for 30 Days, #60 TAB Prov:GALLO HUMMEL MD 01/10/19 Medications Current Medications Acetaminophen (Tylenol Tab) 500 mg Q8 PRN PO MILD PAIN(1-3)OR ELEVATED TEMP; Start 01/06/19 at 01:30 Docusate Sodium/ Ferrous Fumarate (Darlene-Sequels) 1 tab BID PO Last administered on 01/10/19at 20:47; Admin Dose 1 TAB; Start 01/06/19 at 13:30; Stop 02/05/19 at 13:29 Acetaminophen/ Hydrocodone Bitart ([place] (5/325)) 1 tab Q8H PRN PO MODERATE PAIN LEVEL 4-6 Last administered on 01/09/19at 06:21; Admin Dose 1 TAB; Start 01/07/19 at 02:00 Methimazole (Tapazole) 30 mg BID PO Last administered on 01/10/19 20:47; Admin Dose 30 MG; Start 01/07/19 at 21:00 Pantoprazole (Protonix Tab) 40 mg DAILY@06 PO Last administered on 01/11/19 06:17; Admin Dose 40 MG; Start 01/08/19 at 06:00 Celecoxib (Celebrex) 100 mg BID PO Last administered on 01/10/19at 20:47; Admin Dose 100 MG; Start 01/07/19 at 21:00 Propranolol HCl (Inderal) 40 mg Q6 PO Last administered on 01/11/19 06:18; Admin Dose 40 MG; Start 01/08/19 at 12:00 Ondansetron HCl (Zofran Inj) 4 mg Q6H PRN IV NAUSEA AND/OR VOMITING Last administered on 01/08/19 06:33; Admin Dose 4 MG; Start 01/08/19 at 06:30 Prednisone (Prednisone) 40 mg DAILY PO Last administered on 01/10/19 08:25; Admin Dose 40 MG; Start 01/09/19 at 09:00 Allergies: Coded Allergies: sulfamethoxazole (Verified Allergy, Mild, RASH, 01/05/19) trimethoprim (Verified Allergy, Mild, RASH, 01/05/19) Past Surgical History Past Surgical Hx: appendectomy, cholecystectomy, other (Tonsillectomy.) Social History Alcohol Use: none Smoking Status: Never smoker Drug Use: none Exam/Review of Systems Exam Vitals Vital Signs Date Temp Pulse Resp B/P (MAP) Pulse Ox O2 O2 Flow FiO2 Time Delivery Rate 01/11/19 98.6 95 18 113/56 96 02:15 (75) 01/10/19 Room Air 14:51 Intake and Output 01/10/19 01/10/19 01/11/19 1515:00 23:00 07:00 IntakeIntake Total 1230 ml 270 ml 200 ml BalanceBalance 1230 ml 270 ml 200 ml Constitutional: alert, oriented Psych: no complaints Head: normocephalic Eyes: nl sclera, PERRL ENMT: mucosa pink and moist Respiratory: clear to auscultation Cardiovascular: regular rate and rhythm Gastrointestinal: soft, non-tender, bowel sounds Musculoskeletal: nl extremities to inspection Neurological: nl mental status Results Result Diagram: 4/8/19 0547 4/8/19 0547 Results 24hrs Laboratory Tests Test 01/11/19 05:47 White Blood Count 9.1 Red Blood Count 3.41 L Hemoglobin 9.1 L Hematocrit 28.6 L Mean Corpuscular Volume 83.9 Mean Corpuscular Hemoglobin 26.7 L Mean Corpuscular Hemoglobin Concent 31.8 L Red Cell Distribution Width 14.3 Platelet Count 363 Mean Platelet Volume 10.2 Immature Granulocytes % 0.800 H Neutrophils % 72.8 Lymphocytes % 16.6 Monocytes % 9.2 Eosinophils % 0.5 Basophils % 0.1 Nucleated Red Blood Cells % 0.0 Immature Granulocytes # 0.070 H Neutrophils # 6.6 Lymphocytes # 1.5 Monocytes # 0.8 Eosinophils # 0.1 Basophils # 0.0 Nucleated Red Blood Cells # 0.0 Sodium Level 140 Potassium Level 3.7 Chloride Level 106 Carbon Dioxide Level 27 Anion Gap 7 Blood Urea Nitrogen 16 Creatinine 0.39 L Est Glomerular Filtrat Rate mL/min > 60 Glucose Level 97 Calcium Level 9.3 Total Bilirubin 0.2 Direct Bilirubin 0.00 Indirect Bilirubin 0.2 Aspartate Amino Transf (AST/SGOT) 20 Alanine Aminotransferase (ALT/SGPT) 23 Alkaline Phosphatase 96 Total Protein 6.0 L Albumin 2.9 L Globulin 3.10 Albumin/Globulin Ratio 0.93 Medications Medication Current Medications Acetaminophen (Tylenol Tab) 500 mg Q8 PRN PO MILD PAIN(1-3)OR ELEVATED TEMP; Start 01/06/19 at 01:30 Docusate Sodium/ Ferrous Fumarate (Darlene-Sequels) 1 tab BID PO Last administered on 01/10/19at 20:47; Admin Dose 1 TAB; Start 01/06/19 at 13:30; Stop 02/05/19 at 13:29 Acetaminophen/ Hydrocodone Bitart ([place] (5/325)) 1 tab Q8H PRN PO MODERATE PAIN LEVEL 4-6 Last administered on 01/09/19 06:21; Admin Dose 1 TAB; Start 01/07/19 at 02:00 Methimazole (Tapazole) 30 mg BID PO Last administered on 01/10/19at 20:47; Admin Dose 30 MG; Start 01/07/19 at 21:00 Pantoprazole (Protonix Tab) 40 mg DAILY@06 PO Last administered on 01/11/19at 06:17; Admin Dose 40 MG; Start 01/08/19 at 06:00 Celecoxib (Celebrex) 100 mg BID PO Last administered on 01/10/19 20:47; Admin Dose 100 MG; Start 01/07/19 at 21:00 Propranolol HCl (Inderal) 40 mg Q6 PO Last administered on 01/11/19 06:18; Admin Dose 40 MG; Start 01/08/19 at 12:00 Ondansetron HCl (Zofran Inj) 4 mg Q6H PRN IV NAUSEA AND/OR VOMITING Last administered on 01/08/19at 06:33; Admin Dose 4 MG; Start 01/08/19 at 06:30 Prednisone (Prednisone) 40 mg DAILY PO Last administered on 01/10/19 08:25; Admin Dose 40 MG; Start 01/09/19 at 09:00 TYLER MILLER Jan 11, 2019 07:36
[2019-01-11 08:49] VITALS: BP 105/56; PULSE 91; RESP 19
[2019-01-11] MEDS: CELECOXIB 100 MG CAP PO SCH ×2 (09:11→20:37)
[2019-01-11] MEDS: predniSONE 20 MG TAB PO SCH (09:12)
[2019-01-11] MEDS: FERROUS FUMARATE (SR) TAB PO SCH ×2 (09:12→20:36)
[2019-01-11] MEDS: METHIMAZOLE 5 MG TAB PO SCH ×2 (09:12→20:36)
[2019-01-11 12:55] VITALS: BP 120/60; PULSE 85
[2019-01-11 14:14] VITALS: BP 123/60; PULSE 92; RESP 18
[2019-01-11] MEDS ORDERED: BISACODYL (EC) 5 MG TAB PO ONE ×3 (17:00→23:30)
[2019-01-11] MEDS ORDERED: PEG/ELECTROLYTES 4L BTL PO ONE ×3 (17:00→23:30)
--- NOTE | 2019-01-11 17:28 | CONS ---
Assessment/Plan Assessment/Plan Problems: (1) Nodular goiter, toxic or with hyperthyroidism Status: Chronic Comment: It is not 100% clear whether this is acute thyroiditis presenting with thyrotoxicosis or hyperthyroid multinodular goiter. We will be able to answer that question during the appropriate time of the hospitalization. Need to allow her to get settled down bring her off of the prednisone tablets hold the methimazole for roughly a week and then do a nuclear medicine thyroid uptake and scan. This should probably be done in about 3-4 weeks. For now would continue the prednisone and slowly de-escalating dose and continue the methimazole. (2) Iron deficiency anemia Status: Chronic Comment: She is on oral replacement as opposed to parenteral replacement. Please note with a borderline low B12 level could be an issue and is fairly simple to just go ahead and give her a little bit of B12 to make sure she does not have any deficit Qualifiers: Iron deficiency anemia type: unspecified iron deficiency Qualified Codes: D50.9 - Iron deficiency anemia, unspecified (3) Dyslipidemia Status: Chronic Comment: As per primary care Consultation Date/Type/Reason Admit Date/Time Jan 05, 2019 at 23:27 Initial Consult Date 01/06/19 Type of Consult Endocrinology Reason for Consultation Toxicosis; multinodular thyroid gland; possible acute thyroiditis; iron deficiency anemia; low normal B12 Requesting Provider: GALLO HUMMEL MD Date/Time of Note DATE: 01/11/19 TIME: 17:25 24 HR Interval Summary Free Text/Dictation She reports she feels much better. Detailed Summary ENT: other (Throat is a little bit subjectively tender) Endocrine: other (Positive tremor) Exam/Review of Systems Exam Vitals Vital Signs Date Temp Pulse Resp B/P (MAP) Pulse Ox O2 O2 Flow FiO2 Time Delivery Rate 01/11/19 98.0 92 18 123/60 97 Room Air 14:14 (81) Intake and Output 01/10/19 01/10/19 01/11/19 1515:00 23:00 07:00 IntakeIntake Total 1230 ml 270 ml 200 ml BalanceBalance 1230 ml 270 ml 200 ml Constitutional: alert, oriented Neck: thyromegaly (Left-sided thyroid nodule approximately 2 cm plus in size it continuous still operator) Cardiovascular: regular rate and rhythm, nl pulses Extremities: other (Positive tremor) Results Result Diagram: 01/11/19 0547 01/11/19 0547 Results 24hrs Laboratory Tests Test 01/11/19 05:47 White Blood Count 9.1 Red Blood Count 3.41 L Hemoglobin 9.1 L Hematocrit 28.6 L Mean Corpuscular Volume 83.9 Mean Corpuscular Hemoglobin 26.7 L Mean Corpuscular Hemoglobin Concent 31.8 L Red Cell Distribution Width 14.3 Platelet Count 363 Mean Platelet Volume 10.2 Immature Granulocytes % 0.800 H Neutrophils % 72.8 Lymphocytes % 16.6 Monocytes % 9.2 Eosinophils % 0.5 Basophils % 0.1 Nucleated Red Blood Cells % 0.0 Immature Granulocytes # 0.070 H Neutrophils # 6.6 Lymphocytes # 1.5 Monocytes # 0.8 Eosinophils # 0.1 Basophils # 0.0 Nucleated Red Blood Cells # 0.0 Absolute Reticulocyte Count 0.075 Percent Reticulocyte Count 2.2 H Sodium Level 140 Potassium Level 3.7 Chloride Level 106 Carbon Dioxide Level 27 Anion Gap 7 Blood Urea Nitrogen 16 Creatinine 0.39 L Est Glomerular Filtrat Rate mL/min > 60 Glucose Level 97 Calcium Level 9.3 Ferritin 952.0 H Total Bilirubin 0.2 Direct Bilirubin 0.00 Indirect Bilirubin 0.2 Aspartate Amino Transf (AST/SGOT) 20 Alanine Aminotransferase (ALT/SGPT) 23 Alkaline Phosphatase 96 Total Protein 6.0 L Albumin 2.9 L Globulin 3.10 Albumin/Globulin Ratio 0.93 Alpha Fetoprotein 1.39 Carcinoembryonic Antigen < 0.3 CA 19-9 Antigen 5.5 Vitamin B12 Level 285 Folate 18.0 Medications Medication Current Medications Acetaminophen (Tylenol Tab) 500 mg Q8 PRN PO MILD PAIN(1-3)OR ELEVATED TEMP; Start 01/06/19 at 01:30 Docusate Sodium/ Ferrous Fumarate (Darlene-Sequels) 1 tab BID PO Last administered on 01/11/19at 09:12; Admin Dose 1 TAB; Start 01/06/19 at 13:30; Stop 02/05/19 at 13:29 Acetaminophen/ Hydrocodone Bitart ([place] (5/325)) 1 tab Q8H PRN PO MODERATE PAIN LEVEL 4-6 Last administered on 01/09/19at 06:21; Admin Dose 1 TAB; Start 01/07/19 at 02:00 Methimazole (Tapazole) 30 mg BID PO Last administered on 01/11/19 09:12; Admin Dose 30 MG; Start 01/07/19 at 21:00 Pantoprazole (Protonix Tab) 40 mg DAILY@06 PO Last administered on 01/11/19 06:17; Admin Dose 40 MG; Start 01/08/19 at 06:00 Celecoxib (Celebrex) 100 mg BID PO Last administered on 01/11/19 09:11; Admin Dose 100 MG; Start 01/07/19 at 21:00 Propranolol HCl (Inderal) 40 mg Q6 PO Last administered on 01/11/19 12:56; Admin Dose 40 MG; Start 01/08/19 at 12:00 Ondansetron HCl (Zofran Inj) 4 mg Q6H PRN IV NAUSEA AND/OR VOMITING Last administered on 01/08/19 06:33; Admin Dose 4 MG; Start 01/08/19 at 06:30 Prednisone (Prednisone) 40 mg DAILY PO Last administered on 01/11/19 09:12; Admin Dose 40 MG; Start 01/09/19 at 09:00 Polyethylene Glycol/ Electrolytes (Golytely) 2,000 ml 2nd Dose (GI Prep) ONCE PO ; Start 01/11/19 at 20:00; Stop 01/11/19 at 20:01 Bisacodyl (Dulcolax) 10 mg 2nd Dose (GI Prep) ONCE PO ; Start 01/11/19 at 20:00; Stop 01/11/19 at 20:01 Cyanocobalamin (Vitamin B12 Inj) 1,000 mcg ONCE ONCE SC ; Start 01/11/19 at 17:30; Stop 01/11/19 at 17:31; Status UNV Cyanocobalamin (Vitamin B12) 1,000 mcg DAILY PO ; Start 01/11/19 at 17:30; Stop 02/10/19 at 17:29; Status UNV VENUS ELIAS MD Jan 11, 2019 17:28
[2019-01-11] MEDS ORDERED: CYANOCOBALAMIN 1000 MCG INJ SC ONE (17:30)
[2019-01-11 18:22] VITALS: BP 113/55; PULSE 92
[2019-01-11 20:07] VITALS: BP 111/58; PULSE 90; RESP 20
--- NOTE | 2019-01-11 21:03 | PN ---
Date/Time of Note Date/Time of Note DATE: 01/11/19 TIME: 20:59 Assessment/Plan VTE Prophylaxis Risk score (from Ns)>0 risk: 3 SCD applied (from Ns): No SCD contraindicated: low risk/ambulating Pharmacological prophylaxis: LMWH Lines/Catheters IV Catheter Type (from Nrs): Peripheral IV Central line still needed: No Urinary Cath still in place: No Reason Cath still needed: urinary retention Assessment/Plan Assessment/Plan 1. Thyrotoxicosis-improving 2. Tachycardia-improving 3. Neck pain-decreased 4. Dehydration-improving 5. Weight loss 6. Osteoporosis 7. History of cholecystectomy 8. History of appendectomy 9. History of tonsillectomy 10. Anemia 11. Constipation, no GI workup was done. 12. Anxiety 13. Chest pain 14. Respiratory distress. 16. Hypokalemia controlled 17.CHF- stop iv. 18. Incomplete data. Result Diagram: 01/11/19 0547 01/11/19 0547 Results 24hrs Laboratory Tests Test 01/11/19 05:47 White Blood Count 9.1 Red Blood Count 3.41 L Hemoglobin 9.1 L Hematocrit 28.6 L Mean Corpuscular Volume 83.9 Mean Corpuscular Hemoglobin 26.7 L Mean Corpuscular Hemoglobin Concent 31.8 L Red Cell Distribution Width 14.3 Platelet Count 363 Mean Platelet Volume 10.2 Immature Granulocytes % 0.800 H Neutrophils % 72.8 Lymphocytes % 16.6 Monocytes % 9.2 Eosinophils % 0.5 Basophils % 0.1 Nucleated Red Blood Cells % 0.0 Immature Granulocytes # 0.070 H Neutrophils # 6.6 Lymphocytes # 1.5 Monocytes # 0.8 Eosinophils # 0.1 Basophils # 0.0 Nucleated Red Blood Cells # 0.0 Absolute Reticulocyte Count 0.075 Percent Reticulocyte Count 2.2 H Sodium Level 140 Potassium Level 3.7 Chloride Level 106 Carbon Dioxide Level 27 Anion Gap 7 Blood Urea Nitrogen 16 Creatinine 0.39 L Est Glomerular Filtrat Rate mL/min > 60 Glucose Level 97 Calcium Level 9.3 Ferritin 952.0 H Total Bilirubin 0.2 Direct Bilirubin 0.00 Indirect Bilirubin 0.2 Aspartate Amino Transf (AST/SGOT) 20 Alanine Aminotransferase (ALT/SGPT) 23 Alkaline Phosphatase 96 Total Protein 6.0 L Albumin 2.9 L Globulin 3.10 Albumin/Globulin Ratio 0.93 Alpha Fetoprotein 1.39 Carcinoembryonic Antigen < 0.3 CA 19-9 Antigen 5.5 Vitamin B12 Level 285 Folate 18.0 Subjective 24 Hr Interval Summary Free Text/Dictation I feel better. Planned colonoscopy in am. Constitutional: improved, chills, disoriented, poor po; No no complaints, No diaphoresis, No febrile, No requiring IVF, No requiring O2, No other Eyes: No no complaints, No pain, No discharge, No redness, No visual change, No other ENT: dysphagia, sore throat Respiratory: cough, pleuritic pain, shortness of breath; No no complaints, No pain, No sputum, No wheezing, No other Cardiovascular: chest pain, edema, lightheadedness, orthopenea, palpitations; No no complaints, No paroxysmal nocturnal dyspnea, No other Gastrointestinal: constipation, decreased appetite, passing stool; No no complaints, No pain, No blood, No diarrhea, No flatus, No nausea, No vomiting, No other Genitourinary: flank pain; No no complaints, No bleeding, No dysuria, No discharge, No hematuria, No other Musculoskeletal: back pain, bone/joint pain, neck pain; No no complaints, No restricted range of motion, No swelling, No other Skin: bruising, pruritis, rash; No no complaints, No erythema, No laceration, No skin lesions, No other Neurologic: dizziness, headache; No no complaints, No confusion, No focal-weakness, No syncope, No seizure, No other Endocrine: dry skin Lymphatic: No no complaints, No adenopathy, No tender nodes, No lymphadema, No other Psychological: anxiety; No no complaints, No nl mood/affect, No confusion, No depression, No suicidal, No other Exam/Review of Systems Exam Vitals Vital Signs Date Temp Pulse Resp B/P (MAP) Pulse Ox O2 O2 Flow FiO2 Time Delivery Rate 01/11/19 98.3 90 20 111/58 98 20:07 (75) 01/11/19 Room Air 14:14 Intake and Output 01/10/19 01/10/19 01/11/19 1515:00 23:00 07:00 IntakeIntake Total 1230 ml 270 ml 200 ml BalanceBalance 1230 ml 270 ml 200 ml Constitutional: alert, oriented, well developed, distress, frail; No non-verbal, No obese, No other Psych: anxiety; No no complaints, No nl mood/affect, No confusion, No depression, No suicidal, No other Head: normocephalic, atraumatic; No lacerations, No hematomas, No other Eyes: EOMI ENMT: No nl external ears & nose, No nl lips & teeth, No nl nasal mucosa & septum, No mucosa pink and moist, No intubated, No tympanic membranes, No other Neck: jvd, bruits, masses, nuchal rigidity; No supple, No non-tender, No thyromegaly, No other Respiratory: normal air movement, congested cough, crackles/rales, diminished breath sounds Cardiovascular: bruits, murmurs/extra sounds, systolic murmur; No regular rate and rhythm, No nl pulses, No diastolic murmur, No edema, No gallop, No irregular rhythm, No jugular venous distention (JVD), No rub, No S3, No S4, No other Gastrointestinal: soft, bowel sounds Musculoskeletal: nl gait and stance, joint tenderness, muscle tone, muscle weakness; No nl extremities to inspection, No range of motion, No spine non-tender, No swelling, No other Extremities: No normal pulses, No calf tenderness, No cyanosis, No clubbing, No edema, No pitting pedal edema, No palpable cord, No tenderness, No other Neurological: CLAY CARMAN II-XII intact; No nl mental status, No nl speech, No nl strength, No confused, No DTR's symmetric, No focal weakness, No lethargic, No numbness, No reflexes, No unresponsive, No other Skin: nl turgor; No rash or lesions, No diaphoresis, No ecchymosis, No laceration, No puncture, No other Lymph: No nl lymph nodes, No enlarged, No nontender, No other Results Results 24hrs Laboratory Tests Test 01/11/19 05:47 White Blood Count 9.1 Red Blood Count 3.41 L Hemoglobin 9.1 L Hematocrit 28.6 L Mean Corpuscular Volume 83.9 Mean Corpuscular Hemoglobin 26.7 L Mean Corpuscular Hemoglobin Concent 31.8 L Red Cell Distribution Width 14.3 Platelet Count 363 Mean Platelet Volume 10.2 Immature Granulocytes % 0.800 H Neutrophils % 72.8 Lymphocytes % 16.6 Monocytes % 9.2 Eosinophils % 0.5 Basophils % 0.1 Nucleated Red Blood Cells % 0.0 Immature Granulocytes # 0.070 H Neutrophils # 6.6 Lymphocytes # 1.5 Monocytes # 0.8 Eosinophils # 0.1 Basophils # 0.0 Nucleated Red Blood Cells # 0.0 Absolute Reticulocyte Count 0.075 Percent Reticulocyte Count 2.2 H Sodium Level 140 Potassium Level 3.7 Chloride Level 106 Carbon Dioxide Level 27 Anion Gap 7 Blood Urea Nitrogen 16 Creatinine 0.39 L Est Glomerular Filtrat Rate mL/min > 60 Glucose Level 97 Calcium Level 9.3 Ferritin 952.0 H Total Bilirubin 0.2 Direct Bilirubin 0.00 Indirect Bilirubin 0.2 Aspartate Amino Transf (AST/SGOT) 20 Alanine Aminotransferase (ALT/SGPT) 23 Alkaline Phosphatase 96 Total Protein 6.0 L Albumin 2.9 L Globulin 3.10 Albumin/Globulin Ratio 0.93 Alpha Fetoprotein 1.39 Carcinoembryonic Antigen < 0.3 CA 19-9 Antigen 5.5 Vitamin B12 Level 285 Folate 18.0 Medications Medication Current Medications Acetaminophen (Tylenol Tab) 500 mg Q8 PRN PO MILD PAIN(1-3)OR ELEVATED TEMP; Start 01/06/19 at 01:30 Docusate Sodium/ Ferrous Fumarate (Darlene-Sequels) 1 tab BID PO Last administered on 01/11/19 20:36; Admin Dose 1 TAB; Start 01/06/19 at 13:30; Stop 02/05/19 at 13:29 Acetaminophen/ Hydrocodone Bitart ([place] (5/325)) 1 tab Q8H PRN PO MODERATE PAIN LEVEL 4-6 Last administered on 01/09/19 06:21; Admin Dose 1 TAB; Start 01/07/19 at 02:00 Methimazole (Tapazole) 30 mg BID PO Last administered on 01/11/19 20:36; Admin Dose 30 MG; Start 01/07/19 at 21:00 Pantoprazole (Protonix Tab) 40 mg DAILY@06 PO Last administered on 01/11/19 06:17; Admin Dose 40 MG; Start 01/08/19 at 06:00 Celecoxib (Celebrex) 100 mg BID PO Last administered on 01/11/19 20:37; Admin Dose 100 MG; Start 01/07/19 at 21:00 Propranolol HCl (Inderal) 40 mg Q6 PO Last administered on 4/8/19at 18:48; Admin Dose 40 MG; Start 01/08/19 at 12:00 Ondansetron HCl (Zofran Inj) 4 mg Q6H PRN IV NAUSEA AND/OR VOMITING Last administered on 01/08/19at 06:33; Admin Dose 4 MG; Start 01/08/19 at 06:30 Prednisone (Prednisone) 40 mg DAILY PO Last administered on 01/11/19at 09:12; Admin Dose 40 MG; Start 01/09/19 at 09:00 Cyanocobalamin (Vitamin B12) 1,000 mcg DAILY PO ; Start 01/11/19 at 18:30; Stop 02/10/19 at 18:29 Polyethylene Glycol/ Electrolytes (Golytely) 2,000 ml 2nd Dose (GI Prep) ONCE PO ; Start 01/11/19 at 23:30; Stop 01/11/19 at 23:31 Bisacodyl (Dulcolax) 10 mg 2nd Dose (GI Prep) ONCE PO ; Start 01/11/19 at 23:30; Stop 01/11/19 at 23:31 GALLO HUMMEL MD Jan 11, 2019 21:03
[2019-01-11] MEDS: CYANOCOBALAMIN 500 MCG TAB PO SCH (23:01)
[2019-01-11] MEDS: ONDANSETRON 4 MG INJ IV PRN (23:15)
[2019-01-12] VITALS (7 sets, daily range): BP systolic 104–135; BP diastolic 52–67; PULSE 88–100; RESP 12–20
[2019-01-12] MEDS: PANTOPRAZOLE (EC) 40 MG TAB PO SCH (05:56)
[2019-01-12] MEDS: PROPRANOLOL 40 MG TAB PO SCH ×2 (05:56→12:00)
--- NOTE | 2019-01-12 08:58 | CONS ---
Assessment/Plan Assessment/Plan Problems: (1) Nodular goiter, toxic or with hyperthyroidism Status: Chronic Comment: From an endocrine standpoint she is stable for discharge. She will need to be on tapering steroid protocol which should be as follows At the end of 10 days which would be January 19 reduce the dosage to 30 mg for 10 days at the end of that which would be January 29 go to 20 mg a day for 10 days then down to 10 mg for 10 days and then stop I will see her in follow-up. She should continue on the methimazole and in roughly 3-4 weeks we can go ahead and do nuclear medicine thyroid uptake and s can and evaluate where she is. I will see her in 2 weeks. (2) Iron deficiency anemia Status: Chronic Comment: This is coming along nicely, as per Dr. Hummel Qualifiers: Iron deficiency anemia type: unspecified iron deficiency Qualified Codes: D50.9 - Iron deficiency anemia, unspecified (3) Dyslipidemia Status: Chronic Comment: Noted. Consultation Date/Type/Reason Admit Date/Time Jan 05, 2019 at 23:27 Initial Consult Date 01/06/19 Type of Consult Endocrinology Reason for Consultation Thyrotoxicosis with possible pole multinodular goiter versus acute thyroiditis to be determined; Requesting Provider: GALLO HUMMEL MD Date/Time of Note DATE: 01/12/19 TIME: 08:55 24 HR Interval Summary Free Text/Dictation Patient reports she is feeling much better. Please note her George catheter has been discontinued Constitutional: no complaints Detailed Summary ENT: no complaints, other Respiratory: no complaints Cardiovascular: no complaints Neurologic: other (Still with tremor) Endocrine: other (Still with tremor but improved) Exam/Review of Systems Exam Vitals Vital Signs Date Temp Pulse Resp B/P (MAP) Pulse Ox O2 O2 Flow FiO2 Time Delivery Rate 01/12/19 98.8 88 18 126/62 96 08:00 (83) 01/11/19 Room Air 14:14 Intake and Output 01/11/19 01/11/19 01/12/19 1515:00 23:00 07:00 IntakeIntake Total 360 ml 240 ml 260 ml BalanceBalance 360 ml 240 ml 260 ml Constitutional: alert, oriented Neck: thyromegaly (Left base thyroid nodule which has decreased markedly in size although it is photographer still) Respiratory: clear to auscultation, normal air movement Cardiovascular: regular rate and rhythm, nl pulses Gastrointestinal: soft, nl liver, spleen, non-tender Extremities: normal pulses Results Result Diagram: 01/12/1920 01/12/19 0520 Results 24hrs Laboratory Tests Test 01/12/19 05:20 White Blood Count 8.4 Red Blood Count 3.35 L Hemoglobin 8.9 L Hematocrit 28.2 L Mean Corpuscular Volume 84.2 Mean Corpuscular Hemoglobin 26.6 L Mean Corpuscular Hemoglobin Concent 31.6 L Red Cell Distribution Width 14.4 Platelet Count 359 Mean Platelet Volume 10.3 Immature Granulocytes % 0.700 H Neutrophils % 65.9 Lymphocytes % 23.8 Monocytes % 8.7 Eosinophils % 0.8 Basophils % 0.1 Nucleated Red Blood Cells % 0.0 Immature Granulocytes # 0.060 H Neutrophils # 5.5 Lymphocytes # 2.0 Monocytes # 0.7 Eosinophils # 0.1 Basophils # 0.0 Nucleated Red Blood Cells # 0.0 Prothrombin Time 14.1 Prothrombin Time Ratio 1.1 INR International Normalized Ratio 1.08 Activated Partial Thromboplast Time 39.6 H Sodium Level 140 Potassium Level 3.6 Chloride Level 106 Carbon Dioxide Level 28 Anion Gap 6 Blood Urea Nitrogen 15 Creatinine 0.44 Est Glomerular Filtrat Rate mL/min > 60 Glucose Level 92 Calcium Level 9.1 Total Bilirubin 0.3 Direct Bilirubin 0.00 Indirect Bilirubin 0.3 Aspartate Amino Transf (AST/SGOT) 19 Alanine Aminotransferase (ALT/SGPT) 20 Alkaline Phosphatase 91 Total Protein 5.6 L Albumin 2.7 L Globulin 2.90 Albumin/Globulin Ratio 0.93 Medications Medication Current Medications Acetaminophen (Tylenol Tab) 500 mg Q8 PRN PO MILD PAIN(1-3)OR ELEVATED TEMP; Start 01/06/19 at 01:30 Docusate Sodium/ Ferrous Fumarate (Darlene-Sequels) 1 tab BID PO Last administe red on 01/11/19at 20:36; Admin Dose 1 TAB; Start 01/06/19 at 13:30; Stop 02/05/19 at 13:29 Acetaminophen/ Hydrocodone Bitart ([place] (5/325)) 1 tab Q8H PRN PO MODERATE PAIN LEVEL 4-6 Last administered on 01/09/19at 06:21; Admin Dose 1 TAB; Start 01/07/19 at 02:00 Methimazole (Tapazole) 30 mg BID PO Last administered on 01/11/19 20:36; Admin Dose 30 MG; Start 01/07/19 at 21:00 Pantoprazole (Protonix Tab) 40 mg DAILY@06 PO Last administered on 01/12/19 05:56; Admin Dose 40 MG; Start 01/08/19 at 06:00 Celecoxib (Celebrex) 100 mg BID PO Last administered on 01/11/19 20:37; Admin Dose 100 MG; Start 01/07/19 at 21:00 Propranolol HCl (Inderal) 40 mg Q6 PO Last administered on 01/11/19 18:48; Admin Dose 40 MG; Start 01/08/19 at 12:00 Ondansetron HCl (Zofran Inj) 4 mg Q6H PRN IV NAUSEA AND/OR VOMITING Last administered on 01/11/19 23:15; Admin Dose 4 MG; Start 01/08/19 at 06:30 Prednisone (Prednisone) 40 mg DAILY PO Last administered on 01/11/19 09:12; Admin Dose 40 MG; Start 01/09/19 at 09:00 Cyanocobalamin (Vitamin B12) 1,000 mcg DAILY PO ; Start 01/11/19 at 18:30; Stop 02/10/19 at 18:29 VENUS ELIAS MD Jan 12, 2019 08:58
[2019-01-12] MEDS: METHIMAZOLE 5 MG TAB PO SCH ×2 (09:00→13:31)
[2019-01-12] MEDS: FERROUS FUMARATE (SR) TAB PO SCH ×2 (09:00→13:30)
[2019-01-12] MEDS: CYANOCOBALAMIN 500 MCG TAB PO SCH ×2 (09:00→13:31)
[2019-01-12] MEDS: CELECOXIB 100 MG CAP PO SCH ×2 (09:00→13:30)
[2019-01-12] MEDS: predniSONE 20 MG TAB PO SCH ×2 (09:00→13:30)
--- NOTE | 2019-01-12 10:44 | PREAC ---
Date/Time of Note Date/Time of Note DATE: 01/12/19 TIME: 10:42 Anesthesia Eval and Record Evaluation Time Pre-Procedure Interview DATE: 01/12/19 TIME: 10:42 Age 63 Sex female NPO: 8 hrs Preoperative diagnosis ANEMIA Planned procedure EGD Past Medical History Past Medical History: Includes Cardio: HTN, CAD, CHF Endo: Hypothyroid Heme: Anemia Surgery & Anesthesia Issues No known issue Meds Anticoagulation: No Beta Quin within 24 hr: Yes Active Scripts Prednisone* (Prednisone*) 20 Mg Tab, 40 MG PO DAILY for 30 Days, #120 TAB Prov:GALLO HUMMEL MD 01/10/19 Methimazole* (Methimazole*) 5 Mg Tablet, 30 MG PO BID for 30 Days, #120 TAB Prov:GALLO HUMMEL MD 01/10/19 Pantoprazole* (Pantoprazole*) 40 Mg Tablet.dr, 40 MG PO DAILY@06 for 30 Days, #30 Prov:GALLO HUMMEL MD 01/10/19 Hydrocodone Bit-Acetaminophen (Hydrocodone Bit-APAP) 5-325MG Tablet, 1 TAB PO Q8H PRN for MODERATE PAIN LEVEL 4-6 for 10 Days, #30 TAB Prov:GALLO HUMMEL MD 01/10/19 Celecoxib* (Celebrex*) 100 Mg Capsule, 100 MG PO BID for 30 Days, #60 CAP Prov:GALLO HUMMEL MD 01/10/19 [Acetaminophen Tab] 500 MG TAB No Conflict Check, 500 MG PO Q8 PRN for MILD PAIN(1-3)OR ELEVATED TEMP for 30 Days, #120 TAB Prov:GALLO HUMMEL MD 01/10/19 Propranolol Hcl* (Propranolol Hcl*) 40 Mg Tablet, 40 MG PO Q6 for 30 Days, #120 TAB Prov:GALLO HUMMEL MD 01/10/19 Ferrous Fumarate/Ascorbic Acid (Darlene-Sequels 65-25 mg Caplet) 1 Each Tablet.er, 1 TAB PO BID for 30 Days, #60 TAB Prov:GALLO HUMMEL MD 01/10/19 Current Medications Acetaminophen (Tylenol Tab) 500 mg Q8 PRN PO MILD PAIN(1-3)OR ELEVATED TEMP; Start 01/06/19 at 01:30 Docusate Sodium/ Ferrous Fumarate (Darlene-Sequels) 1 tab BID PO Last administered on 01/11/19 20:36; Admin Dose 1 TAB; Start 01/06/19 at 13:30; Stop 02/05/19 at 13:29 Acetaminophen/ Hydrocodone Bitart ([place] (5/325)) 1 tab Q8H PRN PO MODERATE PAIN LEVEL 4-6 Last administered on 01/09/19 06:21; Admin Dose 1 TAB; Start 01/07/19 at 02:00 Methimazole (Tapazole) 30 mg BID PO Last administered on 01/11/19 20:36; Admin Dose 30 MG; Start 01/07/19 at 21:00 Pantoprazole (Protonix Tab) 40 mg DAILY@06 PO Last administered on 01/12/19 05:56; Admin Dose 40 MG; Start 01/08/19 at 06:00 Celecoxib (Celebrex) 100 mg BID PO Last administered on 01/11/19 20:37; Admin Dose 100 MG; Start 01/07/19 at 21:00 Propranolol HCl (Inderal) 40 mg Q6 PO Last administered on 01/11/19 18:48; Admin Dose 40 MG; Start 01/08/19 at 12:00 Ondansetron HCl (Zofran Inj) 4 mg Q6H PRN IV NAUSEA AND/OR VOMITING Last administered on 01/11/19 23:15; Admin Dose 4 MG; Start 01/08/19 at 06:30 Prednisone (Prednisone) 40 mg DAILY PO Last administered on 01/11/19 09:12; Admin Dose 40 MG; Start 01/09/19 at 09:00; Stop 01/19/19 at 08:59 Cyanocobalamin (Vitamin B12) 1,000 mcg DAILY PO ; Start 01/11/19 at 18:30; Stop 02/10/19 at 18:29 Meds reviewed: Yes Allergies Coded Allergies: sulfamethoxazole (Verified Allergy, Mild, RASH, 01/05/19) trimethoprim (Verified Allergy, Mild, RASH, 01/05/19) Allergies Reviewed: Yes Labs/Studies Labs Reviewed: Reviewed by anesthesiologist Result Diagram: 01/12/19 0520 01/12/19 0520 Laboratory Tests 01/12/19 05:20 test: N/A Pre-procedure Exam Last vitals Vital Signs Date Temp Pulse Resp B/P (MAP) Pulse Ox O2 O2 Flow FiO2 Time Delivery Rate 01/12/19 98.4 94 16 135/67 96 Room Air 10:25 (89) Airway: Adequate mouth opening, Adequate thyromental dist Mallampati: Mallampati I Teeth: Normal Lung: Normal Heart: Normal ASA Physical Status ASA physical status: 3 Emergency: None Planned Anesthetic General/MAC: MAC Planned Pain Management Parenteral pain med Pre-operative Attestations Prior to commencing anesthesia and surgery, the patient was re-evaluated, there was verification of: *The patient's identity *The results of appropriate recent lab work and preoperative vital signs *The above evaluation not changing prior to induction *Anesthetic plan, risk benefits, alternative and complications discussed with patient/family; questions answered; patient/family understands, accepts and wishes to proceed. KITTY HENDRICKSON Jan 12, 2019 10:44
[2019-01-12] MEDS ORDERED: LIDOCAINE 2% (SDV) 5 ML INJ ONE (10:49)
[2019-01-12] MEDS ORDERED: PROPOFOL 40 ML ONE (10:49)
[2019-01-12] MEDS ORDERED: DIPHENHYDRAMINE 50 MG INJ IV PRN (11:00)
[2019-01-12] MEDS ORDERED: FENTAnyl 50 MCG/ML VIAL IV PRN (11:00)
[2019-01-12] MEDS ORDERED: EPHEDrine SULFATE 50 MG/5 ML SYG IV PRN (11:00)
[2019-01-12] MEDS ORDERED: ALBUTEROL 0.083% (NEB) 2.5 MG/3 ML AMP HHN PRN (11:00)
[2019-01-12] MEDS ORDERED: ONDANSETRON 4 MG INJ IV PRN (11:00)
[2019-01-12] MEDS ORDERED: METOCLOPRAMIDE 10 MG INJ IV PRN (11:00)
[2019-01-12] MEDS ORDERED: hydrALAzine 20 MG INJ IV PRN (11:00)
[2019-01-12] MEDS ORDERED: LABETALOL HCL 20MG INJ IV PRN (11:00)
--- NOTE | 2019-01-12 11:37 | PAC ---
Date/Time of Note Date/Time of Note DATE: 01/12/19 TIME: 11:37 Post-Anesthesia Notes Post-Anesthesia Note Last documented vital signs Vital Signs Date Temp Pulse Resp B/P (MAP) Pulse Ox O2 O2 Flow FiO2 Time Delivery Rate 01/12/19 98.5 95 18 107/65 94 Room Air 11:37 (79) Activity: WNL Respiratory function: WNL Cardiovascular function: WNL Mental status: Baseline Pain reasonably controlled: Yes Hydration appropriate: Yes Nausea/Vomiting absent: Yes KITTY HENDRICKSON Jan 12, 2019 11:37
--- NOTE | 2019-01-12 13:53 | DS ---
Date/Time of Note Date/Time of Note DATE: 01/12/19 TIME: 13:49 Discharge Summary Admission/Discharge Info Admit Date/Time Jan 05, 2019 at 23:27 Discharge Date/Time January 12/2019 at 3:00 PM. Discharge Diagnosis 1. Thyrotoxicosis-improving 2. Tachycardia-improving 3. Neck pain-decreased 4. Dehydration-improving 5. Weight loss 6. Osteoporosis 7. History of cholecystectomy 8. History of appendectomy 9. History of tonsillectomy 10. Anemia 11. Constipation, no GI workup was done. 12. Anxiety 13. Chest pain 14. Respiratory distress. 16. Hypokalemia controlled 17.CHF-improved 18. Peptic ulcer disease 19. Gastritis 20. Failed colonoscopy test. Not done due to of poor preparation. 21. Incomplete data. Result Diagram: Patient Condition: Guarded Hx of Present Illness Neck pain with swelling worse last 5-7 days. Came to the office about 10 days ago complaining of weight loss and palpitations patient was found to have a. Hyperthyroid condition with the TSH being 0.01 that was also started. 10 mg twice daily along with the Inderal 40 3 times daily. Patient condition mildly improved she came to the office 4 days ago complaining of painful and swollen neck which was thyroiditis consistent with thyroiditis. Motrin was given 600 3 times daily yesterday received a call from a that. Her tachycardia continues she does not feel good she is having swallowing problems and recommended to come to the hospital and subsequently was admitted. In the emergency room prednisone was started heart rate now is better controlled. She continues to have a pain in the neck area. Hospital Course The patient was admitted with thyrotoxic storm. Responded little bit slowly but nicely to beta-guerita steroids and anti-inflammatory medications which we are going to continue as an outpatient. GI workup was done incompletely. At the t isabell of this dictation preliminary report states that patient had peptic ulcer disease gastritis and some nodules the exact nature of which is not clear. Colonoscopy was not done due to the poor preparation. Home Meds Active Scripts Prednisone* (Prednisone*) 20 Mg Tab, 40 MG PO DAILY for 30 Days, #120 TAB Prov:GALLO HUMMEL MD 01/10/19 Methimazole* (Methimazole*) 5 Mg Tablet, 30 MG PO BID for 30 Days, #120 TAB Prov:GALLO HUMMEL MD 01/10/19 Pantoprazole* (Pantoprazole*) 40 Mg Tablet.dr, 40 MG PO DAILY@06 for 30 Days, #30 Prov:GALLO HUMMEL MD 01/10/19 Hydrocodone Bit-Acetaminophen (Hydrocodone Bit-APAP) 5-325MG Tablet, 1 TAB PO Q8H PRN for MODERATE PAIN LEVEL 4-6 for 10 Days, #30 TAB Prov:GALLO HUMMEL MD 01/10/19 Celecoxib* (Celebrex*) 100 Mg Capsule, 100 MG PO BID for 30 Days, #60 CAP Prov:GALLO HUMMEL MD 01/10/19 [Acetaminophen Tab] 500 MG TAB No Conflict Check, 500 MG PO Q8 PRN for MILD PAIN(1-3)OR ELEVATED TEMP for 30 Days, #120 TAB Prov:GALLO HUMMEL MD 01/10/19 Propranolol Hcl* (Propranolol Hcl*) 40 Mg Tablet, 40 MG PO Q6 for 30 Days, #120 TAB Prov:GALLO HUMMEL MD 01/10/19 Ferrous Fumarate/Ascorbic Acid (Darlene-Sequels 65-25 mg Caplet) 1 Each Tablet.er, 1 TAB PO BID for 30 Days, #60 TAB Prov:GALLO HUMMEL MD 01/10/19 Follow-up Plan In 5 days to primary care physician. 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 Roth In 7-[address] Mccarty. Primary Care Provider Gallo Hummel MD Time spent on discharge: > 30 minutes Pending Labs Laboratory Tests Test 01/12/19 05:20 01/12/19 07:20 White Blood Count 8.4 10^3/ul (4.8-10.8) Red Blood Count 3.35 10^6/ul (4.20-5.40) Hemoglobin 8.9 g/dl (12.0-16.0) Hematocrit 28.2 % (37.0-47.0) Mean Corpuscular Volume 84.2 fl (82.0-101.0) Mean Corpuscular Hemoglobin 26.6 pg (29.0-33.0) Mean Corpuscular 31.6 g/dl (32.0-37.0) Hemoglobin Concent Red Cell Distribution Width 14.4 % (11.5-14.5) Platelet Count 359 10^3/UL (140-415) Mean Platelet Volume 10.3 fl (7.4-10.4) Immature Granulocytes % 0.700 % (0.001-0.429) Neutrophils % 65.9 % (39.0-77.0) Lymphocytes % 23.8 % (15.0-51.0) Monocytes % 8.7 % (0.0-11.0) Eosinophils % 0.8 % (0.0-7.0) Basophils % 0.1 % (0.0-2.0) Nucleated Red Blood Cells % 0.0 /100WBC (0.0-0.0) Immature Granulocytes # 0.060 10^3/ul (0.0-0.031) Neutrophils # 5.5 10^3/ul (1.6-7.5) Lymphocytes # 2.0 10^3/ul (0.8-2.9) Monocytes # 0.7 10^3/ul (0.3-0.9) Eosinophils # 0.1 10^3/ul (0.0-0.5) Basophils # 0.0 10^3/ul (0.0-0.1) Nucleated Red Blood Cells # 0.0 10^3/ul (0.0-0.0) Prothrombin Time 14.1 Sec (11.9-14.9) Prothrombin Time Ratio 1.1 INR International 1.08 Normalized Ratio Activated Partial Thromboplast 39.6 Sec (23.0-35.0) Time Sodium Level 140 mmol/L (135-144) Potassium Level 3.6 mmol/L (3.5-5.1) Chloride Level 106 mmol/L (97-110) Carbon Dioxide Level 28 mmol/L (21-31) Anion Gap 6 (5-13) Blood Urea Nitrogen 15 mg/dl (7-20) Creatinine 0.44 mg/dl (0.44-1.00) Est Glomerular Filtrat > 60 mL/min (>60) Rate mL/min Glucose Level 92 mg/dl (70-220) Calcium Level 9.1 mg/dl (8.4-10.2) Total Bilirubin 0.3 mg/dl (0.2-1.3) Direct Bilirubin 0.00 mg/dl (0.00-0.20) Indirect Bilirubin 0.3 mg/dl (0-1.1) Aspartate Amino 19 IU/L (15-46) Transf (AST/SGOT) Alanine 20 IU/L (13-69) Aminotransferase (ALT/SGPT) Alkaline Phosphatase 91 IU/L (42-121) Total Protein 5.6 g/dl (6.1-8.1) Albumin 2.7 g/dl (3.3-4.9) Globulin 2.90 g/dl (1.3-3.2) Albumin/Globulin Ratio 0.93 Stool Occult Blood NEGATIVE (NEGATIVE) GALLO HUMMEL MD Jan 12, 2019 13:53
== END 2019-01-12 16:40 | disposition home or self-care (01) | DRG 644 ==
LOC: FTE 19:05 → PP2 23:27
PROVIDERS: ADMIT Family Medicine; ATTEND Family Medicine
PROC: 0DB68ZX Excision of Stomach, Via Natural or Artificial Opening Endoscopic, Diagnostic (ICD-10-PCS; principal; 2019-01-12 12:00)
DX: E05.21 Thyrotoxicosis with toxic multinodular goiter with thyrotoxic crisis or storm (principal); K22.10 Ulcer of esophagus without bleeding; R06.03 Acute respiratory distress; I25.10 Atherosclerotic heart disease of native coronary artery without angina pectoris; F32.9 Major depressive disorder, single episode, unspecified; K31.7 Polyp of stomach and duodenum; K29.50 Unspecified chronic gastritis without bleeding; R63.4 Abnormal weight loss; M81.0 Age-related osteoporosis without current pathological fracture; I11.0 Hypertensive heart disease with heart failure; I50.9 Heart failure, unspecified; K21.0 Gastro-esophageal reflux disease with esophagitis; D50.9 Iron deficiency anemia, unspecified; E78.5 Hyperlipidemia, unspecified; R00.0 Tachycardia, unspecified; E86.0 Dehydration; K59.00 Constipation, unspecified; F41.9 Anxiety disorder, unspecified; E87.6 Hypokalemia; Z90.49 Acquired absence of other specified parts of digestive tract
CPT/HCPCS: 36415; 70490; 71045; 76536; 80048; 80053; 81001; 82105; 82270; 82378; 82607; 82728; 82746; 83540; 83735; 84439; 84443; 84481; 84484; 85025; 85045; 85610; 85651; 85730; 86301; 88305; 88312; 93005; 96374; 96375; J1720; J2270; J2405; J2916; J3420; J7030; J7040; J7042; J7512

== ENCOUNTER 2019-02-21 19:34 | Emergency (ER) | payer MEDICARE, OTHER ==
[~2019-02-21] VITALS: Ht 157.5 cm; Wt 60.7 kg
[~2019-02-21 19:34] MED LIST: Acetaminophen PO; CELE100C PO; FERR1TAB14 PO; HYDR-3601 PO; METH-493 PO; PANT40TA4 PO; PRED20TA PO; PROP40TA4 PO
[2019-02-21 19:39] VITALS: BP 144/65; PULSE 93; RESP 20; Ht 157.5 cm; Wt 60.7 kg
--- NOTE | 2019-02-21 20:49 | ERD ---
ER Documentation Chief Complaint Chief Complaint L wrist bite today HPI 63-year-old female, with history of hyperthyroidism, presents the emergency department, complaining of superficial abrasion of the left wrist, caused by a dog bite 1 hour prior to arrival. According to the patient,she was bitten by her own dog which has all the vaccines up-to-date and is a mostly indoor pet. ROS All systems reviewed and are negative except as per history of present illness. Medications Home Meds Active Scripts Bacitracin* (Bacitracin Zinc Oint*) 28.35 Gm Oint, 1 APPLIC TOP BID, #1 TUB APPLI TO Prov:LESLIE HERNANDEZ MD 02/21/19 Prednisone* (Prednisone*) 20 Mg Tab, 40 MG PO DAILY for 30 Days, #120 TAB Prov:GALLO HUMMEL MD 01/10/19 Methimazole* (Methimazole*) 5 Mg Tablet, 30 MG PO BID for 30 Days, #120 TAB Prov:GALLO HUMMEL MD 01/10/19 Pantoprazole* (Pantoprazole*) 40 Mg Tablet.dr, 40 MG PO DAILY@06 for 30 Days, #30 Prov:GALLO HUMMEL MD 01/10/19 Hydrocodone Bit-Acetaminophen (Hydrocodone Bit-APAP) 5-325MG Tablet, 1 TAB PO Q8H PRN for MODERATE PAIN LEVEL 4-6 for 10 Days, #30 TAB Prov:GALLO HUMMEL MD 01/10/19 Celecoxib* (Celebrex*) 100 Mg Capsule, 100 MG PO BID for 30 Days, #60 CAP Prov:GALLO HUMMEL MD 01/10/19 [Acetaminophen Tab] 500 MG TAB No Conflict Check, 500 MG PO Q8 PRN for MILD PAIN(1-3)OR ELEVATED TEMP for 30 Days, #120 TAB Prov:GALLO HUMMEL MD 01/10/19 Propranolol Hcl* (Propranolol Hcl*) 40 Mg Tablet, 40 MG PO Q6 for 30 Days, #120 TAB Prov:GALLO HUMMEL MD 01/10/19 Ferrous Fumarate/Ascorbic Acid (Darlene-Sequels 65-25 mg Caplet) 1 Each Tablet.er, 1 TAB PO BID for 30 Days, #60 TAB Prov:GALLO HUMMEL MD 01/10/19 Allergies Allergies: Coded Allergies: sulfamethoxazole (Verified Allergy, Mild, RASH, 01/05/19) trimethoprim (Verified Allergy, Mild, RASH, 01/05/19) PMhx/Soc History of Surgery: Yes (Gall bladder removed- 15 years ago; Appendix ) Anesthesia Reaction: No Hx Neurological Disorder: No Hx Respiratory Disorders: No Hx Cardiac Disorders: No Hx Psychiatric Problems: No Hx Miscellaneous Medical Probl: Yes (HYPERTHYROIDISM) Hx Alcohol Use: Yes (Socially 1-2 /week) Hx Substance Use: No Hx Tobacco Use: No FmHx Family History: No diabetes, No coronary disease Physical Exam Vitals Vital Signs Date Temp Pulse Resp B/P (MAP) Pulse Ox O2 O2 Flow FiO2 Time Delivery Rate 02/21/19 97.9 93 20 144/65 96 19:39 (91) Physical Exam Const: No acute distress Head: Atraumatic Eyes: Normal Conjunctiva ENT: Normal External Ears, Nose and Mouth. Neck: Full range of motion. No meningismus. Resp: Clear to auscultation bilaterally Cardio: Regular rate and rhythm, no murmurs Abd: Soft, non tender, non distended. Normal bowel sounds Skin: 0.5 cm linear laceration on the left wrist. No active bleeding, no foreign body seen, no erythema, edema or fluctuance. No petechiae or rashes Back: No midline or flank tenderness Ext: No cyanosis, or edema Neur: Awake and alert Psych: Normal Mood and Affect Procedures/MDM Vital signs stable, Low suspicion for foreign body, tendon laceration, nerve damage, cellulitis, erysipelas, abscess. Physical examination and clinical presentation consistent most likely with dog bite of the left wrist without evidence of infection. During the ED course the patient remained stable, no new complaints. The wound was irrigated and bacitracin applied. Please schedule a follow up appointment with your primary doctor in 2 days for wound check. If the symptoms persist or worsen like severe pain, fever or signs of infection, return to the hospital immediately. The patient is stable to be treated outpatient and will be discharged home with a Rx for topical antibiotic, some side effects of prescribed medications (headache, rash, nausea, vomiting, diarrhea, drowsiness, habituation, bleeding, hypertension, interactions with other medications) were reviewed. Instructions explained and given directly by me to the patient and relatives with acknowledgment and demonstrated understanding. Disclaimer: Inadvertent spelling and grammatical errors are likely due to EHR/dictation software use and do not reflect on the overall quality of patient care. Also, please note that the electronic time recorded on this note does not necessarily reflect the actual time of the patient encounter. Departure Diagnosis: Primary Impression: Dog bite of left wrist Condition: Stable Additional Instructions: Thank you very much for allowing us to participate in your care. Your health and safety is our top priority at [facility]. Call your primary care doctor TOMORROW for an appointment during the next 2-4 days and bring all the information provided. Have prescriptions filled and follow precisely the directions on the label. If the symptoms get worse and your provider is unavailable, return to the Emergency Department immediately. LESLIE HERNANDEZ MD February 21, 2019 20:49
[2019-02-21] MEDS ORDERED: BACI28.34 TOP (20:51)
== END 2019-02-21 21:25 | disposition home or self-care (01) ==
LOC: FTE 19:34
DX: S61.552A Open bite of left wrist, initial encounter (principal); W54.0XXA Bitten by dog, initial encounter; Y92.9 Unspecified place or not applicable
CPT/HCPCS: 99282